=== PATIENT | female | born 1955 | race Caucasian/White ===

== ENCOUNTER 2020-05-17 09:20 | Emergency (ER) | payer BC ==
[2020-05-17] MEDS ORDERED: Nitroglycerin 0.4 MG Tab.SL ONE (09:38)
[2020-05-17] MEDS ORDERED: LORazepam 0.5 MG Tab PO ONE (10:12)
[2020-05-17] MEDS ORDERED: Nitroglycerin 0.4 MG Tab.SL SL ONE (10:12)
[2020-05-17 10:21] LABS: CHLORIDE,CL 101 mmol/L (98-107); SODIUM,NA 138 mmol/L (136-145)
[2020-05-17] MEDS ORDERED: Ondansetron 4 MG/2 ML SDV IVPUSH ONE (10:34)
[2020-05-17] MEDS ORDERED: Ticagrelor 90 MG Tab PO ONE (10:35)
[2020-05-17] MEDS ORDERED: Metoprolol Tartrate 25 MG Tab PO ONE (10:36)
[2020-05-17] MEDS: Sodium Chloride 0.9% 10 ML Syringe FLUSH PRN ×2 (10:37→10:57)
[2020-05-17] MEDS ORDERED: Nitroglycerin/D5W 25 MG/250 ML BOTTLE IV SCH (10:45)
[2020-05-17] MEDS ORDERED: Heparin Sodium/0.45% NaCl 500 ML IV SCH (10:45)
[2020-05-17] MEDS ORDERED: Heparin Sodium 5,000 Units/ML Vial IVPUSH ONE (10:48)
--- NOTE | 2020-05-17 10:48 | EDM.PDOC ---
ED HPI GENERAL MEDICAL PROBLEM - General Chief Complaint: Chest Pain Stated Complaint: chest pain Time Seen by Provider: 05/17/20 09:50 Source of Information: Reports: Patient History Limitations: Reports: No Limitations - History of Present Illness INITIAL COMMENTS - FREE TEXT/NARRATIVE: Patient comes to ER with complaint of right sided chest pain that started around 5am today. Radiates at times as an ache down right arm. Hand/fingers feel tingly. No accompanying SOB/sweating/nausea. Denies other symptoms. No history of CAD/previous [place] Has had intermittent similar episodes on and off over the last 3 months. Nothing specific triggers them. She thought they were due to stress/anxiety. No recent illnesses/injuries. 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, Other (see below) Other Treatments EMT DISPATCHER: pt took 325mg ASA - Related Data Allergies Allergy/AdvReac Type Severity Reaction Status Date / Time Sulfa (Sulfonamide Allergy Anaphylactic Verified 05/17/20 09:37 Antibiotics) Shock Past Medical History Cardiovascular History: Reports: High Cholesterol, Hypertension Respiratory History: Reports: Asthma, Other (See Below) (suspected sleep apnea/needs sleep study) Genitourinary History: Reports: Urinary Incontinence (stress incontinence) Musculoskeletal History: Reports: Osteoarthritis Endocrine/Metabolic History: Reports: Obesity/BMI 30+ Social & Family History - Tobacco Use Tobacco Use Status *Q: Never Tobacco User - Alcohol Use Alcohol Use History: No Alcohol Use Frequency: Rarely - Recreational Drug Use Recreational Drug Use: No Drug Use in Last 12 Months: No ED ROS GENERAL - Review of Systems Review Of Systems: Comprehensive ROS is negative, except as noted in HPI. ED EXAM, GENERAL - Physical Exam Exam: See Below Exam Limited By: No Limitations General Appearance: Alert, Anxious, Obese Eye Exam: Bilateral Eye: EOMI, PERRL Ears: Hearing Grossly Normal Nose: No: Nasal Deformity, Nasal Swelling, Nasal Drainage Throat/Mouth: Normal Lips, Normal Voice, No Airway Compromise Head: Atraumatic, Normocephalic Neck: Supple, Non-Tender, Full Range of Motion Respiratory/Chest: No Respiratory Distress, Lungs Clear, Normal Breath Sounds, No Accessory Muscle Use, Chest Non-Tender Cardiovascular: Regular Rate, Rhythm, No Edema, No Murmur GI/Abdominal: Normal Bowel Sounds, Soft, Non-Tender, No Distention (Female) Exam: Deferred Rectal (Female) Exam: Deferred Back Exam: No: CVA Tenderness (L), CVA Tenderness (R), Muscle Spasm, Paraspinal Tenderness, Vertebral Tenderness Extremities: Normal Inspection, Non-Tender, Normal Capillary Refill Neurological: Alert, Oriented, Normal Cognition Psychiatric: Normal Affect, Normal Mood Skin Exam: Warm, Dry, Intact, Normal Color #1 Interpretation EKG Date: 05/17/20 Time: 09:22 Rhythm: Other (1st degree AV block) Rate (Beats/Min): 101 [place]: Normal P-Wave: Present QRS: Normal ST-T: Other (no obvious ischemia noted) QT: Normal Comparison: NA - No Prior EKG #2 Interpretation EKG Date: 05/17/20 Time: 10:11 Rhythm: Other (sinus tach) Rate (Beats/Min): 121 [place]: LAD-Left [place] Deviation P-Wave: Present QRS: Normal ST-T: Elevated QT: Normal Comparison: Change From Previous EKG (appears to be developing ST elevation 2/3/AVF and in lateral leads) Course - Vital Signs Last Recorded V/S: Last Vital Signs Temp 36.7 C 05/17/20 09:20 Pulse 117 H 05/17/20 10:39 Resp 25 H 05/17/20 09:20 BP 148/98 H 05/17/20 10:39 Pulse Ox 98 05/17/20 09:20 - Orders/Labs/Meds Orders: Active Orders 24 hr Category Date Time Status EKG Documentation Completion [RC] ASDIRECTED Care 05/17/20 09:54 Ordered CXR [Chest 1V Frontal] [CR] Stat Exams 05/17/20 09:40 Ordered INR,PT,PROTHROMBIN TIME [COAG] Stat Lab 05/17/20 10:36 Ordered UA W/MICROSCOPIC [URIN] Stat Lab 05/17/20 09:53 Ordered Heparin Sodium/0.45% NaCl [Heparin 25,000 Units in 1/2 Med 05/17/20 10:45 Ordered NS 500 ML] 500 ml IV TITRATE Nitroglycerin 25 MG in D5W @ 10 MCG/MIN (250ml) Premix Med 05/17/20 10:45 Ordered Nitroglycerin/D5W [Nitroglycerin 25 MG/D5W 250 ML] 25 mg in 250 ml IV TITRATE Sodium Chloride 0.9% [Saline Flush] Med 05/17/20 09:52 Ordered 10 ml FLUSH ASDIRECTED PRN Saline Lock Insert [OM.PC] Stat Oth 05/17/20 09:53 Ordered Medication Orders Heparin Sodium/Sodium Chloride (Heparin 25,000 Units In 1/2 Ns 500 Ml) 500 mls @ 0 mls/hr IV TITRATE MIS; Protocol Nitroglycerin/Dextrose (Nitroglycerin 25 Mg/D5w 250 Ml) 25 mg in 250 mls @ 6 mls/hr IV TITRATE MIS; Protocol Sodium Chloride (Saline Flush) 10 ml FLUSH ASDIRECTED PRN PRN Reason: Keep Vein Open Last Admin: 05/17/20 10:37 Dose: 10 ml Documented by: SILVIA Labs: Laboratory Tests 05/17/20 05/17/20 05/17/20 Range/Units 09:45 09:45 09:45 WBC 8.4 (4.0-10.2) K/uL RBC 5.41 H (3.77-5.09) M/uL Hgb 16.5 H (11.7-15.5) g/dL Hct 49.4 H (34.0-46.0) % MCV 91.3 (84.0-98.0) fL MCH 30.5 (28.2-33.3) pg MCHC 33.4 (31.7-36.0) g/dL RDW 14.6 H (11.2-14.1) % Plt Count 327 (150-350) K/uL Neut % (Auto) 63.9 (45.0-80.0) % Lymph % (Auto) 25.1 (10.0-50.0) % Carbon % (Auto) 9.3 (2.0-14.0) % Eos % (Auto) 1.2 (0.0-5.0) % Baso % (Auto) 0.5 (0.0-2.0) % Neut # (Auto) 5.35 (1.40-7.00) K/uL Lymph # (Auto) 2.10 (0.50-3.50) K/uL Carbon # (Auto) 0.78 (0.00-1.00) K/uL Eos # (Auto) 0.10 (0.00-0.50) K/uL Baso # (Auto) 0.04 (0.00-0.20) K/uL D-Dimer, Quantitative < 100 (0-400) ng/mL Sodium 138 (136-145) mmol/L Potassium 3.6 (3.5-5.1) mmol/L Chloride 101 (98-107) mmol/L Carbon Dioxide 24.8 (21.0-32.0) mmol/L BUN 16 (7-18) mg/dL Creatinine 0.89 (0.51-1.17) mg/dL Est Cr Clr Drug Dosing TNP Estimated GFR (MDRD) > 60 mL/min Glucose 125 H (74-106) mg/dL Lactic Acid (0.4-2.0) mmol/L Calcium 9.9 (8.5-10.1) mg/dL Magnesium 2.1 (1.8-2.4) mg/dL Total Bilirubin 0.4 (0.2-1.0) mg/dL AST 22 (15-37) U/L ALT 39 (12-78) U/L Alkaline Phosphatase 69 (46-116) IU/L Troponin I 0.103 H* (0.000-0.056) ng/mL NT-Pro-B Natriuret Pep 2046 H (0-125) pg/mL Total Protein 8.0 (6.4-8.2) g/dL Albumin 4.3 (3.4-5.0) g/dL 05/17/20 Range/Units 09:45 WBC (4.0-10.2) K/uL RBC (3.77-5.09) M/uL Hgb (11.7-15.5) g/dL Hct (34.0-46.0) % MCV (84.0-98.0) fL MCH (28.2-33.3) pg MCHC (31.7-36.0) g/dL RDW (11.2-14.1) % Plt Count (150-350) K/uL Neut % (Auto) (45.0-80.0) % Lymph % (Auto) (10.0-50.0) % Carbon % (Auto) (2.0-14.0) % Eos % (Auto) (0.0-5.0) % Baso % (Auto) (0.0-2.0) % Neut # (Auto) (1.40-7.00) K/uL Lymph # (Auto) (0.50-3.50) K/uL Carbon # (Auto) (0.00-1.00) K/uL Eos # (Auto) (0.00-0.50) K/uL Baso # (Auto) (0.00-0.20) K/uL D-Dimer, Quantitative (0-400) ng/mL Sodium (136-145) mmol/L Potassium (3.5-5.1) mmol/L Chloride (98-107) mmol/L Carbon Dioxide (21.0-32.0) mmol/L BUN (7-18) mg/dL Creatinine (0.51-1.17) mg/dL Est Cr Clr Drug Dosing Estimated GFR (MDRD) mL/min Glucose (74-106) mg/dL Lactic Acid 1.6 (0.4-2.0) mmol/L Calcium (8.5-10.1) mg/dL Magnesium (1.8-2.4) mg/dL Total Bilirubin (0.2-1.0) mg/dL AST (15-37) U/L ALT (12-78) U/L Alkaline Phosphatase (46-116) IU/L Troponin I (0.000-0.056) ng/mL NT-Pro-B Natriuret Pep (0-125) pg/mL Total Protein (6.4-8.2) g/dL Albumin (3.4-5.0) g/dL Meds: Medications Generic Name Dose Route Start Last Admin Trade Name Freq PRN Reason Stop Dose Admin Heparin Sodium/Sodium Chloride 500 mls @ 0 mls/hr 05/17/20 10:45 Heparin 25,000 Units In 1/2 Ns 500 Ml IV TITRATE MIS Protocol 12 UNITS/KG/HR Nitroglycerin/Dextrose 25 mg in 250 mls @ 6 mls/hr 05/17/20 10:45 Nitroglycerin 25 Mg/D5w 250 Ml IV TITRATE MIS Protocol 10 MCG/MIN Sodium Chloride 10 ml 05/17/20 09:52 05/17/20 10:37 Saline Flush FLUSH 10 ml ASDIRECTED PRN Administration Keep Vein Open Discontinued Medications Generic Name Dose Route Start Last Admin Trade Name Freq PRN Reason Stop Dose Admin Lorazepam 0.5 mg 05/17/20 10:12 05/17/20 10:34 Ativan PO 05/17/20 10:13 0.5 mg ONETIME ONE Administration Metoprolol Tartrate 25 mg 05/17/20 10:36 05/17/20 10:39 Lopressor PO 05/17/20 10:37 25 mg ONETIME ONE Administration Nitroglycerin Confirm 05/17/20 09:38 05/17/20 09:38 Nitrostat Administered 05/17/20 09:39 0.4 mg Dose Administration 0.4 mg .ROUTE .STK-MED ONE Nitroglycerin 0.4 mg 05/17/20 10:12 05/17/20 10:13 Nitrostat SL 05/17/20 10:13 0.4 mg ONETIME ONE Administration Ondansetron HCl 4 mg 05/17/20 10:34 05/17/20 10:37 Zofran IVPUSH 05/17/20 10:35 4 mg ONETIME ONE Administration Ticagrelor 180 mg 05/17/20 10:35 05/17/20 10:37 Brilinta PO 05/17/20 10:36 180 mg ONETIME ONE Administration - Re-Assessments/Exams Free Text/Narrative Re-Assessment/Exam: 05/17/20 11:12 Chest pain protocol initiated. Patient had taken ASA prior to coming to ER and this was not given. Pain improved with NTG. Initial EKG did not show obvious ST depression/elevation. Chest xray unremarkable. Second nitro given. Further improvement of discomfort. Small amount pressure sensation remained. BP much improved. Telemetry pattern noted to change and another EKG ordered. This one indicated some ST elevation in multiple leads. [facility] contacted and these EKGs were faxed to their facility. At same time patient's labs started to return and troponin noted to be 0.103 Patient then discussed with from their ER staff and arrangements for transfer to their facility made. Brillinta/Heparin/Metoprolol ordered. Nitro drip initiated. EMS immediately available for transfer of patient via ground to [facility]. Departure - Departure Time of Disposition: 11:00 Disposition: DC/Tfer to Acute Hospital 02 Condition: Good Clinical Impression: Acute [place] Qualifiers: Myocardial infarction type: ST elevation myocardial infarction Involved coronary artery: unspecified coronary artery Qualified Code(s): I21.3 - ST elevation (STEMI) myocardial infarction of unspecified site - Discharge Information Referrals: Terri Juarez NP [Primary Care Provider] - Sepsis Event Note (ED) - Evaluation Sepsis Screening Result: No Definite Risk - Focused Exam Vital Signs: Vital Signs Temp Pulse Pulse Resp BP BP Pulse Ox 05/17/20 10:39 117 H 148/98 H 05/17/20 10:13 147/97 H 05/17/20 09:38 190/111 H 05/17/20 09:20 36.7 C 92 25 H 190/111 H 98 - My Orders Last 24 Hours: My Active Orders 05/17/20 09:40 CXR [Chest 1V Frontal] [CR] Stat 05/17/20 09:52 Sodium Chloride 0.9% [Saline Flush] 10 ml FLUSH ASDIRECTED PRN 05/17/20 09:53 UA W/MICROSCOPIC [URIN] Stat Saline Lock Insert [OM.PC] Stat 05/17/20 09:54 EKG Documentation Completion [RC] ASDIRECTED 05/17/20 10:36 INR,PT,PROTHROMBIN TIME [COAG] Stat 05/17/20 10:45 Heparin Sodium/0.45% NaCl [Heparin 25,000 Units in 1/2 NS 500 ML] 500 ml IV TITRATE Nitroglycerin 25 MG in D5W @ 10 MCG/MIN (250ml) Premix Nitroglycerin/D5W [Nitroglycerin 25 MG/D5W 250 ML] 25 mg in 250 ml IV TITRATE - Assessment/Plan Last 24 Hours: My Active Orders 05/17/20 09:40 CXR [Chest 1V Frontal] [CR] Stat 05/17/20 09:52 Sodium Chloride 0.9% [Saline Flush] 10 ml FLUSH ASDIRECTED PRN 05/17/20 09:53 UA W/MICROSCOPIC [URIN] Stat Saline Lock Insert [OM.PC] Stat 05/17/20 09:54 EKG Documentation Completion [RC] ASDIRECTED 05/17/20 10:36 INR,PT,PROTHROMBIN TIME [COAG] Stat 05/17/20 10:45 Heparin Sodium/0.45% NaCl [Heparin 25,000 Units in 1/2 NS 500 ML] 500 ml IV TITRATE Nitroglycerin 25 MG in D5W @ 10 MCG/MIN (250ml) Premix Nitroglycerin/D5W [Nitroglycerin 25 MG/D5W 250 ML] 25 mg in 250 ml IV TITRATE
== END 2020-05-17 11:20 ==
LOC: LL.ED 09:20
DX: I21.3 ST elevation (STEMI) myocardial infarction of unspecified site (principal); E78.00 Pure hypercholesterolemia, unspecified; I10 Essential (primary) hypertension; J45.909 Unspecified asthma, uncomplicated; E66.9 Obesity, unspecified; Z88.2 Allergy status to sulfonamides
CPT/HCPCS: 36415; 71045; 80053; 83605; 83735; 83880; 84484; 85025; 85379; 85610; 93005; 96365; 96368; 96375; 99285-25; A9270-GY; J1644; J2405; J3490

== ENCOUNTER 2020-08-30 01:05 | Emergency (ER) | payer BC ==
[2020-08-30] MEDS: Phenylephrine 0.5% Nasal Spray 15 ML Bot NASBOTH ONE (01:21)
[2020-08-30] MEDS: cloNIDine 0.1 MG Tab PO ONE (01:22)
--- NOTE | 2020-08-30 01:31 | EDM.PDOC ---
ED HPI GENERAL MEDICAL PROBLEM - General Chief Complaint: General Stated Complaint: Nose bleed Time Seen by Provider: 08/30/20 01:10 Source of Information: Reports: Patient History Limitations: Reports: No Limitations - History of Present Illness INITIAL COMMENTS - FREE TEXT/NARRATIVE: Nose bleed for about 3 hours from left nares Is on Brelinta Onset: Today, Sudden Duration: Hour(s): Location: Reports: Face - Related Data Allergies Allergy/AdvReac Type Severity Reaction Status Date / Time Sulfa (Sulfonamide Allergy Anaphylactic Verified 05/17/20 09:37 Antibiotics) Shock Home Meds: Home Meds Diltiazem [Dilacor XR] 1 tab PO DAILY 05/17/20 [History] Ezetimibe [Zetia] 1 tab PO BEDTIME 05/17/20 [History] Imipramine HCl [Imipramine] 1 tab PO BEDTIME 05/17/20 [History] Losartan [Cozaar] 1 tab PO DAILY 05/17/20 [History] Potassium Chloride [Klor-Con M20] 1 tab PO DAILY 05/17/20 [History] Zafirlukast [Accolate] 1 tab PO BEDTIME 05/17/20 [History] cloNIDine [Catapres] 1 tab PO BID 05/17/20 [History] hydroCHLOROthiazide [Hydrochlorothiazide] 1 tab PO DAILY 05/17/20 [History] Past Medical History Cardiovascular History: Reports: High Cholesterol, Hypertension Respiratory History: Reports: Asthma, Other (See Below) (suspected sleep apnea/needs sleep study) Genitourinary History: Reports: Urinary Incontinence (stress incontinence) Musculoskeletal History: Reports: Osteoarthritis Endocrine/Metabolic History: Reports: Obesity/BMI 30+ ED ROS GENERAL - Review of Systems Review Of Systems: See Below HEENT: Reports: Nosebleed ED EXAM, GENERAL - Physical Exam Exam: See Below Exam Limited By: No Limitations General Appearance: Alert, WD/WN Nose: Other (Mild bleeding from left nares) Throat/Mouth: Normal Oropharynx Course - Vital Signs Last Recorded V/S: Last Vital Signs Temp 97.3 F 08/30/20 01:23 Pulse 94 08/30/20 01:23 Resp 14 08/30/20 01:23 BP 157/125 H 08/30/20 01:23 Pulse Ox 98 08/30/20 01:23 - Orders/Labs/Meds Meds: Medications Discontinued Medications Generic Name Dose Route Start Last Admin Trade Name [place] PRN Reason Stop Dose Admin Clonidine HCl 0.1 mg 08/30/20 01:13 08/30/20 01:22 Catapres PO 08/30/20 01:14 0.1 mg ONETIME ONE Administration Phenylephrine HCl 15 ml 08/30/20 01:17 08/30/20 01:21 Andres-Synephrine 0.5% Regular Nasal Samson NASBOTH 08/30/20 01:18 15 ml ONETIME ONE Administration - Re-Assessments/Exams Free Text/Narrative Re-Assessment/Exam: 08/30/20 01:29 Andres-synephrine sprayed up both nares 7.5 cm balloon placed in left nares without problem Bleeding resolved Departure - Departure Time of Disposition: 01:30 Disposition: Home, Self-Care 01 Clinical Impression: Bleeding nose - Discharge Information *PRESCRIPTION DRUG MONITORING PROGRAM REVIEWED*: Not Applicable *COPY OF PRESCRIPTION DRUG MONITORING REPORT IN PATIENT STEFFEN: Not Applicable Referrals: Terri Juarez NP [Primary Care Provider] - Additional Instructions: To clinic in 24 to 48 hours for removal Sepsis Event Note (ED) - Evaluation Sepsis Screening Result: No Definite Risk - Focused Exam Vital Signs: Vital Signs Temp Pulse Resp BP BP Pulse Ox 08/30/20 01:23 97.3 F 94 14 157/125 H 98 08/30/20 01:22 157/125 H
[2020-08-30] MEDS: Sodium Chloride 0.9% 1,000 ML IV ONE (02:04)
[2020-08-30 02:07] VITALS: BP 148/86; PULSE 65
== END 2020-08-30 02:25 | disposition home or self-care (01) ==
LOC: LL.ED 01:05
DX: R04.0 Epistaxis (principal); J45.909 Unspecified asthma, uncomplicated; I10 Essential (primary) hypertension; E66.9 Obesity, unspecified; Z68.31 Body mass index [BMI] 31.0-31.9, adult; Z88.2 Allergy status to sulfonamides; Z79.899 Other long term (current) drug therapy
CPT/HCPCS: 30903; 99283-25; A9270-GY; J7030

== ENCOUNTER 2020-08-31 11:43 | Observation (INO) | payer BC ==
--- NOTE | 2020-08-31 11:45 | EDM.PDOC ---
ED HPI GENERAL MEDICAL PROBLEM - General Chief Complaint: General Stated Complaint: hypotension, dizziness Time Seen by Provider: 08/31/20 11:45 Source of Information: Reports: Patient, Family (), Old Records ([facility] chart/EMR), Other (Telephone consultation with YON Bar at the [facility]) History Limitations: Reports: No Limitations - History of Present Illness INITIAL COMMENTS - FREE TEXT/NARRATIVE: Patient was brought to the emergency room via private automobile by her for evaluation of significant hypotension with a blood pressure of only 70/58 at [facility] with no treatment or medications in that facility with exception of INR fingerstick evaluation of 1.0. Previous telephone consultation with YON Bar at the [facility] updating me concerning patient's symptoms and transfer to our emergency room for further evaluation. The patient was evaluated in this facility on 08/29 for left-sided epistaxis with apparent moderate blood loss and significant vasovagal episode after Irvin catheter was placed in the left naris at that time. Note that the patient was also given clonidine during that evaluation with patient previously on clonidine without problems prior to her previous AK in April 2020 as below. The patient woke up at about 3:30 AM this morning with nonspecific dizziness and weakness, however no orthostasis, fall, injury, etc.. The patient denies any chest pain/pressure, heart flutter, orthostasis, orthopnea, diaphoresis, paresthesias, recent decreased exercise tolerance, or any other anginal-type symptoms. No recent history of abdominal pain, heartburn, nausea, diarrhea, melena, gross hematochezia, or any food intolerance, including fatty foods, etc.. She denies any gross hematuria, colic, or other UTI symptoms. The patient also denies any recent fever, cough, wheezing, dyspnea, etc.. No history of recent headaches, visual changes, diplopia, change in mental status, or other change in neurological status. Note that the patient's blood pressure on 08/29 was initially elevated at 157/125 with patient denying any medication noncompliance or restarting of clonidine therapy since that visit. The patient did take her morning medications today. She denies any current pain or discomfort. Onset: Today, Gradual Onset Date: 08/31/20 Onset Time: 03:30 Duration: Other (No pain) Quality: Reports: Same as Previous Episode Severity: Severe (Hypertension prior to arrival as above) Improves with: Reports: None Worsens with: Reports: None Context: Reports: Other (As above). Denies: Sick Contact, Trauma Associated Symptoms: Reports: Weakness (Nonspecific generalized improved at time of arrival). Denies: Confusion, Chest Pain, Diaphoresis, Fever/Chills, Headaches, Loss of Appetite, Malaise, Nausea/Vomiting, Rash, Seizure, Shortness of Breath, Syncope Treatments CALENDERER: Reports: Other (see below) (None) - Related Data Allergies Allergy/AdvReac Type Severity Reaction Status Date / Time Sulfa (Sulfonamide Allergy Anaphylactic Verified 08/31/20 11:44 Antibiotics) Shock Home Meds: Home Meds Imipramine HCl [Imipramine] 1 tab PO BEDTIME 05/17/20 [History] Potassium Chloride [Klor-Con M20] 1 tab PO DAILY 05/17/20 [History] Aspirin 1 tab PO DAILY 08/31/20 [History] Biotin/Keratin [Biotin Plus Keratin Tablet] 1 tab PO DAILY 08/31/20 [History] Calcium Carbonate [Calcium] 1 tab PO DAILY 08/31/20 [History] Cholecalciferol (Vitamin D3) [Vitamin D3] 5,000 unit PO DAILY 08/31/20 [History] Fish Oil/DHA/EPA [Fish Oil 1,200 MG] 1 cap PO BEDTIME 08/31/20 [History] Flaxseed Oil [Rodeo-3 Flaxseed Oil] 1 cap PO DAILY 08/31/20 [History] Fluticasone Propionate [Flonase] 2 spray NASBOTH DAILY 08/31/20 [History] Fluticasone/Salmeterol [Advair 250-50] 1 puff INH BID 08/31/20 [History] Furosemide [Lasix] 1 tab PO DAILY 08/31/20 [History] Garlic 1 cap PO DAILY 08/31/20 [History] Magnesium Oxide 1 tab PO BEDTIME 08/31/20 [History] Metoprolol Succinate 1 tab PO DAILY 08/31/20 [History] Multivitamin with Minerals [One Daily Plus Minerals] 1 tab PO DAILY 08/31/20 [History] Rosuvastatin [Crestor] 0.5 tab PO Q2D 08/31/20 [History] Sacubitril/Valsartan [Entresto 49 mg-51 mg Tablet] 1 tab PO BID 08/31/20 [History] Ticagrelor [Brilinta] 1 tab PO BID 08/31/20 [History] Ubidecarenone [Co Q-10] 1 cap PO DAILY 08/31/20 [History] Zafirlukast [Accolate] 1 tab PO BEDTIME 08/31/20 [History] lisinopriL [Lisinopril] 1 tab PO DAILY 08/31/20 [History] Past Medical History HEENT History: Reports: Allergic Rhinitis, Cataract, Impaired Vision, Other (See Below). Denies: Glaucoma, Hard of Hearing, Macular Degeneration, Otitis Media, Retinal Detachment Other HEENT History: History of right TM perforation requiring surgery as below. No history of recurrent otitis media requiring PE tubes. Patient does wear glasses. Beginning cataracts with no surgery to this point. Cardiovascular History: Reports: Arrhythmia, CAD, Cardiomyopathy, Heart Failure, High Cholesterol, Hypertension, AK, PTCA, Stents, Other (See Below). Denies: Afib, Aneurysm, Blood Clots/VTE/DVT, Heart Murmur, PVD, Syncope Other Cardiovascular History: Inferior wall STEMI on 05/17/2020 with multivessel 80-90% stenosis with PTCA/stent x3 as below. Left ventricular enlargement by echocardiogram. Severe ischemic cardiomyopathy with ejection fraction of only 20-25% on 05/19/2020, although improved on 08/20/2020 as below. Previously known grade 1 diastolic dysfunction. Bradycardia secondary to Cardizem. Previous sinus tachycardia of unknown etiology. Dyslipidemia. Respiratory History: Reports: Asthma, Bronchitis, Recurrent, COPD, Intubation, Previous, Other (See Below). Denies: Intubation, Difficult, PE, Pneumonia, Recurrent, Pneumothorax, Sleep Apnea, TB Other Respiratory History: Possible beginning sleep apnea with no work-up to this point. Gastrointestinal History: Reports: GERD, PUD. Denies: Celiac Disease, Cholelithiasis, Chronic Constipation, Chronic Diarrhea, Colon Polyp, Fecal Incontinence, Gastritis, GI Bleed, Hepatitis, Inflammatory Bowel Disease, Irritable Bowel Syndrome, Jaundice, Pancreatitis Genitourinary History: Reports: Urinary Incontinence. 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 Menopause in her 50s with brief episode of postmenopausal bleeding in January 2018 with spontaneous resolution with only pelvic ultrasound work-up to this point. Musculoskeletal History: Reports: Arthritis, Osteoarthritis, Other (See Below). Denies: Amputation, Back Pain, Chronic, Fracture, Gout, Neck Pain, Chronic, Osteoporosis, RA, SLE Other Musculoskeletal History: Clark's cyst of the left knee. Neurological History: Reports: None. Denies: Alzheimers Disease, Cerebral Aneurysms, Concussion, CVA, Headaches, Chronic, Head Trauma, Migraines, MS, Neuropathy, Peripheral, Parkinson's, Seizure, TIA, Vertigo Psychiatric History: Reports: None. Denies: Abuse, Victim of, ADD, ADHD, Addiction, Anxiety, Dementia, Depression, Psych Hospitalization(s), PTSD, Suicide Attempt, Suicidal Ideation Endocrine/Metabolic History: Reports: None, Obesity/BMI 30+. Denies: Diabetes, Gestational, Diabetes, Type I, Diabetes, Type II, Diabetes Mellitus, Type 3c, Hypokalemia, Hypomagnesemia, Hypothyroidism, IDDM Hematologic History: Reports: Other (See Below). Denies: Anemia, B12 Deficiency, Blood Transfusion(s), Iron Deficiency Other Hematologic History: Polycythemia secondary to asthma/COPD. Immunologic History: Reports: None. Denies: AIDS, HIV, SLE Oncologic (Cancer) History: Reports: None. Denies: Basal Cell Carcinoma, Cervix, Colon, Hodgkin's Lymphoma, Leukemia, Lymphoma, Malignant Melanoma, Non- Hodgkin's Lymphoma, Ovarian, Squamous Cell Carcinoma, Uterine Dermatologic History: Reports: None. Denies: Eczema, Psoriasis - Infectious Disease History Infectious Disease History: Reports: Chicken Pox, Measles. Denies: C-Difficile, Meningitis, Mononucleosis, MRSA, Mumps, Novel Coronavirus, Pertussis (Whooping Cough), Rheumatic Fever, Rubella, Scarlet Fever, Shingles, VRE - Past Surgical History Head Surgeries/Procedures: Reports: None HEENT Surgical History: Reports: Adenoidectomy, Oral Surgery, Tonsillectomy, Other (See Below). Denies: Cataract Surgery, Eye Surgery, Laser Surgery, LASIK, Myringotomy w Tube(s), Naso-Sinus Surgery Other HEENT Surgeries/Procedures: Tonsillectomy and adenoidectomy as a child. Right-sided tympanoplasty at about age 6. [place] teeth extraction x1 with concomitant TMJ repair on the right side in the with subsequent prosthesis removal later in the . Cardiovascular Surgical History: Reports: Coronary Artery Stent, Percutaneous Transluminal Angioplasty, Other (See Below). Denies: Varicose Other Cardiovascular Surgeries/Procedures: PTCA/stent x3 on 05/18/2020 including the LAD, left circumflex and right coronary arteries. Respiratory Surgical History: Reports: None. Denies: Thoracentesis GI Surgical History: Reports: None. Denies: Appendectomy, Cholecystectomy, Colonoscopy, EGD, Hernia, Abdominal, Hernia, Inguinal, Hernia Repair/Other Female Surgical History: Reports: Breast Biopsy, Tubal Ligation, Other (See Below). Denies: Section, D&C, Hysterectomy, Salpingo-Oophorectomy Other Female Surgeries/Procedures: Bilateral tubal ligation in about 1981. Endocrine Surgical History: Reports: None. Denies: Thyroid Biopsy Neurological Surgical History: Denies: C-Spine, Discectomy, Laminectomy, Lumbar Spine, Sacral Spine, Spinal Fusion, Thoracic Spine, Vertebroplasty Musculoskeletal Surgical History: Reports: None. Denies: Amputation, Arthroscopic Procedure, Carpal Tunnel, Ganglion Cyst, Joint Replacement, ORIF, Shoulder Surgery Oncologic Surgical History: Reports: None Dermatological Surgical History: Reports: None - Past Imaging History Past Imaging History: Reports: Angiography (Heart catheterization on 05/17/2020 with subsequent PTCA/stent on 05/18/2020 as above.), Cardiac Echo (Last echocardiogram on 08/20/2020 with ejection fraction of 40-45% with previous echocardiogram on 05/19/2020 and 05/17/2020 indicating severe ischemic cardiomyopathy with ejection fraction of only 20-25%. Otherwise findings as above. Previous echocardiogram on 01/23/2011 showed an ejection fraction of 69%.), CAT Scan (CT of the sinuses in December 06, 2009.), Mammogram (Last on 09/03/2015.), Stress Testing (05/29/2002. Negative Cardiolite stress test other than arrhythmia on), Ultrasound (Pelvic ultrasound on 02/12/2018.), Venous Doppler (Venous Doppler studies of the left leg on 06/11/2010 and 05/05/2010.) Social & Family History - Family History HEENT: Reports: None. Denies: Glaucoma, Macular Degeneration, Retinal Detachment Cardiac: Reports: Afib, Blood Clots/VTE/DVT, CAD, Heart Murmur, Hypertension, AK, Pacemaker, Other (See Below). Denies: Aneurysm, Arrhythmia, High Cholesterol, PVD/COD, Syncope Other Cardiac Family History: Father with history of pacemaker and DVT and unknown type of valvular surgery x2. Fatal AK at age 71 in her procedures done like bypasses or stents or any father. Sister with atrial fibrillation and hyperlipidemia. Maternal grandfather with fatal AK in his 40s to 50s. Paternal uncle with valvular surgery at age 56. Respiratory: Reports: Sleep Apnea, Other (See Below). Denies: Asthma, COPD, PE, Pneumothorax Other Respiratory Family Hisory: Sister with sleep apnea. GI: Reports: None. Denies: Celiac Disease, Cholelithiasis, Colon Polyps, GERD, GI bleed, Inflammatory Bowel Disease, Irritable Bowel Syndrome, PUD : Reports: None. Denies: Renal Calculus, Renal Disease/Insufficiency OBGYN: Reports: None. Denies: Dysfunctional uterine bleeding, Endometriosis, Fibroids, Recurrent Spontaneous Musculoskeletal: Reports: None. Denies: Arthritis, Gout, Osteoarthritis, RA, SLE Neurological: Reports: Alzheimers Disease, Dementia, Migraines, Other (See Below). Denies: Cerebral Aneurysms, CVA, MS, Parkinson's, Seizure, TIA Other Neurological Family History: Mother with organic brain syndrome. Migraine headaches and daughters x2. Psychiatric: Reports: Anxiety, Depression, Other (See Below). Denies: Abuse, Victim of, ADD, ADHD, Psych Hospitalization(s), Psychosis, PTSD, Suicide Attempt Other Psychiatric Family History: Anxiety depression disorder in daughter and maternal grandmother. Endocrine/Metabolic: Reports: None. Denies: Diabetes, Gestational, Diabetes, Type I, Diabetes, type II, Diabetes Mellitus, Type 3c, Hypothyroidism, IDDM Hematologic: Reports: None. Denies: Anemia, SLE Immunologic: Reports: None. Denies: AIDS, HIV, SLE Dermatologic: Denies: Eczema, Psoriasis Oncologic: Reports: Ovarian, Other (See Below). Denies: Breast, Cervix, Colon, Hodgkin's Lymphoma, Leukemia, Lung, Non-Hodgkin's Lymphoma, Prostate, Renal, Skin, Uterine Other Oncologic Family History: Sister with ovarian cancer in her 50s. - Tobacco Use Tobacco Use Status *Q: Never Tobacco User Tobacco Use Within Last Twelve Months: No Used Tobacco, but Quit: No Smoking Cessation Information Provided To Patient: No Second Hand Smoke Exposure: No Second Hand Smoke Education Provided: No - Caffeine Use Caffeine Use: Reports: None. Denies: Coffee, Energy Drinks, Soda, Tea - Alcohol Use Alcohol Use History: Yes Days Per Week of Alcohol Use: 0 Number of Drinks Per Day: 1 Number of Drinks Per Day Comment: Usually wine or mixed drinks only once per year. No previous DWIs, problems with alcohol abuse, etc. 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 ED EXAM, GENERAL - Physical Exam Exam: See Below Exam Limited By: No Limitations General Appearance: Alert, WD/WN, No Apparent Distress Eye Exam: Bilateral Eye: EOMI, Normal Inspection (No nystagmus or vertigo. Patient is wearing glasses.), PERRL Ears: Normal External Exam, Normal Canal, Hearing Grossly Normal, Normal TMs Nose: Normal Inspection, Normal Mucosa, No Blood Throat/Mouth: Normal Inspection, Normal Lips, Normal Teeth, Normal Gums, Normal Oropharynx, Normal Voice, No Airway Compromise. No: Dysphagia, Perioral Cyanosis Head: Atraumatic, Normocephalic. No: Facial Swelling, Facial Tenderness, Sinus Tenderness Neck: Normal Inspection, Supple, Non-Tender, Full Range of Motion. No: Carotid Bruit, Lymphadenopathy (L), Lymphadenopathy (R), Thyromegaly Respiratory/Chest: No Respiratory Distress, Lungs Clear, Normal Breath Sounds, No Accessory Muscle Use, Chest Non-Tender. No: Pleural Rub, Retractions Cardiovascular: Normal Peripheral Pulses, No Edema, No Gallop, No JVD, No Murmur, No Rub, Tachycardia. No: Gallop/S3, Gallop/S4, Extra Beats (None at time of exam), Friction Rub Peripheral Pulses: 2+: Radial (L), Radial (R), Dorsalis Pedis (L), Dorsalis Pedis (R) GI/Abdominal: Normal Bowel Sounds, Soft, Non-Tender, No Organomegaly, No Distention, No Abnormal Bruit, No Mass, Pelvis Stable, Other (Obese). No: Guarding (Female) Exam: Deferred Rectal (Female) Exam: Deferred Back Exam: Normal Inspection, Full Range of Motion. No: CVA Tenderness (L), CVA Tenderness (R), Other Extremities: Normal Inspection, Normal Range of Motion, Non-Tender, No Pedal Edema, Normal Capillary Refill. No: Arianna's Sign Neurological: Alert, Oriented, CN II-XII Intact, Normal Cognition, Normal Gait, Normal Reflexes (Negative Babinski's), No Motor/Sensory Deficits Psychiatric: Normal Affect, Normal Mood Skin Exam: Warm, Dry, Intact, Normal Color, No Rash, Ecchymosis (Occasional arms bilaterally). No: Diaphoretic, Petechiae, Wound/Incision Lymphatic: No Adenopathy #1 Interpretation EKG Date: 08/31/20 Time: 11:50 Rhythm: Other (Sinus tachycardia) Rate (Beats/Min): 105 Basom: Normal (Extended left cardiac access) P-Wave: Enlarged (Mild diffuse biphasic P waves with extreme poor R wave progression in the anterior leads) QRS: LBBB (0.10 seconds representing a new borderline incomplete left bundle branch block with T wave inversions in leads V3 through V6) ST-T: Other (As above) QT: Normal GA/PQ Interval: 0.21 seconds representing a stable first-degree AV block Comparison: Change From Previous EKG (Only written report of [facility] E[facility] from [facility] is available from 05/19/2020 with possibility of progressive lateral wall cardiac ischemia and new incomplete left bundle branch block?) EKG Interpretation Comments: 1. Lateral wall cardiac ischemia 2. First-degree AV block 3. Left atrial enlargement Course - Vital Signs Last Recorded V/S: Last Vital Signs Temp 36.7 C 08/31/20 11:46 Pulse 87 08/31/20 11:46 Resp 20 08/31/20 11:46 BP 127/86 08/31/20 11:46 Pulse Ox 97 08/31/20 11:46 Vital Signs - 24 hr 08/31/20 08/31/20 08/31/20 11:46 12:00 12:15 Temperature [ 36.7 C Oral] Pulse, 87 105 H 105 H Peripheral [ Pulse Oximetry] Respiratory 20 20 22 H Rate Blood Pressure 127/86 109/77 120/105 H [Right Upper Arm] O2 Sat by Pulse 97 94 L 96 Oximetry 08/31/20 08/31/20 08/31/20 12:30 12:45 13:00 Temperature [ Oral] Pulse, 105 H 99 98 Peripheral [ Pulse Oximetry] Respiratory 24 H 23 H 20 Rate Blood Pressure 112/88 127/87 147/97 H [Right Upper Arm] O2 Sat by Pulse 94 L 94 L 96 Oximetry 08/31/20 13:18 Temperature [ Oral] Pulse, 91 Peripheral [ Pulse Oximetry] Respiratory 20 Rate Blood Pressure 142/91 H [Right Upper Arm] O2 Sat by Pulse 96 Oximetry - Orders/Labs/Meds Orders: Active Orders 24 hr Category Date Time Status Cardiac Monitoring [RC] . DIRECTED Care 08/31/20 11:46 Active EKG Documentation Completion [RC] ASDIRECTED Care 08/31/20 11:46 Active Oxygen Therapy, ED [RC] PRN Care 08/31/20 11:46 Active Peripheral IV Care [RC] . DIRECTED Care 08/31/20 11:46 Active Pulse Oximetry [RC] CONTINUOUS Care 08/31/20 11:46 Active Up With Assistance [RC] PFP Care 08/31/20 11:46 Active Vital Signs [RC] PFP Care 08/31/20 11:46 Active Nothing per Oral Now Diet [DIET] Diet 08/31/20 Breakfast Active Chest 1V Frontal [CR] Stat Exams 08/31/20 11:46 Taken Lactated Ringers [Ringers, Lactated] 1,000 ml Med 08/31/20 12:19 Active IV .BOLUS Sodium Chloride 0.9% [Saline Flush] Med 08/31/20 11:46 Active 10 ml FLUSH ASDIRECTED PRN Obtain Past Medical Record [OM.PC] Urgent Oth 08/31/20 11:46 Active Peripheral IV Insertion Adult [OM.PC] Stat Oth 08/31/20 11:46 Ordered Resuscitation Status Stat Resus Stat 08/31/20 11:46 Ordered EKG 12 Lead [EK] Stat Ther 08/31/20 11:46 Ordered Medication Orders Lactated Ringer's (Ringers, Lactated) 1,000 mls @ 999 mls/hr IV .BOLUS ONE Stop: 08/31/20 13:19 Last Admin: 08/31/20 12:29 Dose: 999 mls/hr Documented by: FRIDA Sodium Chloride (Saline Flush) 10 ml FLUSH ASDIRECTED PRN PRN Reason: Keep Vein Open Last Admin: 08/31/20 11:53 Dose: 10 ml Documented by: SILVIA Labs: Laboratory Tests 08/31/20 08/31/20 08/31/20 Range/Units 11:55 11:55 11:55 WBC 16.7 H (4.0-10.2) K/uL RBC 5.33 H (3.77-5.09) M/uL Hgb 15.8 H (11.7-15.5) g/dL Hct 48.2 H (34.0-46.0) % MCV 90.4 (84.0-98.0) fL MCH 29.6 (28.2-33.3) pg MCHC 32.8 (31.7-36.0) g/dL RDW 14.9 H (11.2-14.1) % Plt Count 317 (150-350) K/uL Neut % (Auto) 82.0 H (45.0-80.0) % Lymph % (Auto) 9.5 L (10.0-50.0) % [place] % (Auto) 8.3 (2.0-14.0) % Eos % (Auto) 0.1 (0.0-5.0) % Baso % (Auto) 0.1 (0.0-2.0) % Neut # (Auto) 13.66 H (1.40-7.00) K/uL Lymph # (Auto) 1.59 (0.50-3.50) K/uL [place] # (Auto) 1.39 H (0.00-1.00) K/uL Eos # (Auto) 0.01 (0.00-0.50) K/uL Baso # (Auto) 0.02 (0.00-0.20) K/uL PT 9.6 (9.5-12.0) SEC INR 1.0 APTT 25.3 (24.5-32.8) SEC D-Dimer, Quantitative 246 (0-400) ng/mL Sodium (136-145) mmol/L Potassium (3.5-5.1) mmol/L Chloride (98-107) mmol/L Carbon Dioxide (21.0-32.0) mmol/L BUN (7-18) mg/dL Creatinine (0.51-1.17) mg/dL Est Cr Clr Drug Dosing Estimated GFR (MDRD) mL/min Glucose (74-106) mg/dL Lactic Acid (0.4-2.0) mmol/L Uric Acid (2.6-7.2) mg/dL Calcium (8.5-10.1) mg/dL Magnesium (1.8-2.4) mg/dL Total Bilirubin (0.2-1.0) mg/dL AST (15-37) U/L ALT (12-78) U/L Alkaline Phosphatase (46-116) IU/L Creatine Kinase (26-308) U/L Creatine Kinase Index (0.0-2.5) % CK-MB (CK-2) (0.00-3.60) ng/mL Troponin I (0.000-0.056) ng/mL NT-Pro-B Natriuret Pep (0-125) pg/mL Total Protein (6.4-8.2) g/dL Albumin (3.4-5.0) g/dL TSH, Ultra Sensitive (0.358-3.740) mIU/mL 08/31/20 08/31/20 Range/Units 11:55 11:55 WBC (4.0-10.2) K/uL RBC (3.77-5.09) M/uL Hgb (11.7-15.5) g/dL Hct (34.0-46.0) % MCV (84.0-98.0) fL MCH (28.2-33.3) pg MCHC (31.7-36.0) g/dL RDW (11.2-14.1) % Plt Count (150-350) K/uL Neut % (Auto) (45.0-80.0) % Lymph % (Auto) (10.0-50.0) % [place] % (Auto) (2.0-14.0) % Eos % (Auto) (0.0-5.0) % Baso % (Auto) (0.0-2.0) % Neut # (Auto) (1.40-7.00) K/uL Lymph # (Auto) (0.50-3.50) K/uL [place] # (Auto) (0.00-1.00) K/uL Eos # (Auto) (0.00-0.50) K/uL Baso # (Auto) (0.00-0.20) K/uL PT (9.5-12.0) SEC INR APTT (24.5-32.8) SEC D-Dimer, Quantitative (0-400) ng/mL Sodium 138 (136-145) mmol/L Potassium 3.9 (3.5-5.1) mmol/L Chloride 102 (98-107) mmol/L Carbon Dioxide 24.1 (21.0-32.0) mmol/L BUN 16 (7-18) mg/dL Creatinine 1.03 (0.51-1.17) mg/dL Est Cr Clr Drug Dosing TNP Estimated GFR (MDRD) 54 mL/min Glucose 124 H (74-106) mg/dL Lactic Acid 2.3 H (0.4-2.0) mmol/L Uric Acid 4.6 (2.6-7.2) mg/dL Calcium 9.7 (8.5-10.1) mg/dL Magnesium 2.1 (1.8-2.4) mg/dL Total Bilirubin 0.8 (0.2-1.0) mg/dL AST 15 (15-37) U/L ALT 24 (12-78) U/L Alkaline Phosphatase 76 (46-116) IU/L Creatine Kinase 51 (26-308) U/L Creatine Kinase Index 2.0 (0.0-2.5) % CK-MB (CK-2) 1.00 (0.00-3.60) ng/mL Troponin I 0.012 (0.000-0.056) ng/mL NT-Pro-B Natriuret Pep 4484 H (0-125) pg/mL Total Protein 7.7 (6.4-8.2) g/dL Albumin 3.8 (3.4-5.0) g/dL TSH, Ultra Sensitive 1.908 (0.358-3.740) mIU/mL Meds: Medications Generic Name Dose Route Start Last Admin Trade Name Freq PRN Reason Stop Dose Admin Lactated Ringer's 1,000 mls @ 999 mls/hr 08/31/20 12:19 08/31/20 12:29 Ringers, Lactated IV 08/31/20 13:19 999 mls/hr .BOLUS ONE Administration Sodium Chloride 10 ml 08/31/20 11:46 08/31/20 11:53 Saline Flush FLUSH 10 ml ASDIRECTED PRN Administration Keep Vein Open Discontinued Medications Generic Name Dose Route Start Last Admin Trade Name Freq PRN Reason Stop Dose Admin Famotidine 40 mg 08/31/20 11:46 08/31/20 11:53 Pepcid IVPUSH 08/31/20 11:47 40 mg ONETIME ONE Administration - Radiology Interpretation Free Text/Narrative:: 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 Chest x-ray, portable, shows moderate pulmonary obstructive disease with no cardiomegaly, CHF, pulmonary infiltrates, pneumothorax, etc. Departure - Departure Time of Disposition: 13:30 Disposition: DC/Tfer W/I Hosp To Swing 61 Clinical Impression: First degree AV block, Incomplete left bundle branch block, PVCs (premature ventricular contractions), Dyslipidemia, Lactic acid blood increased Coronary artery disease Qualifiers: Coronary Disease-Associated Artery/Lesion type: eagle artery [place] vs. transplanted heart: eagle heart Associated angina: without angina Qualified Code(s): I25.10 - Atherosclerotic heart disease of eagle coronary artery without angina pectoris COPD (chronic obstructive pulmonary disease) Qualifiers: COPD type: emphysema Emphysema type: panlobular Qualified Code(s): J43.1 - Panlobular emphysema Hypertension Qualifiers: Hypertension type: essential hypertension Qualified Code(s): I10 - Essential (primary) hypertension Leukocytosis Qualifiers: Leukocytosis type: bandemia Qualified Code(s): D72.825 - [place] CHF (congestive heart failure) Qualifiers: Heart failure type: combined systolic and diastolic Heart failure chronicity: acute on chronic Qualified Code(s): I50.43 - Acute on chronic combined systolic (congestive) and diastolic (congestive) heart failure - Discharge Information *PRESCRIPTION DRUG MONITORING PROGRAM REVIEWED*: Not Applicable *COPY OF PRESCRIPTION DRUG MONITORING REPORT IN PATIENT STEFFEN: Not Applicable Referrals: Terri Juarez, [employer] MACHINE [Primary Care Provider] - Forms: ED Department Discharge Care Plan Goals: See plan Sepsis Event Note (ED) - Focused Exam Vital Signs: Vital Signs Temp Pulse Resp BP Pulse Ox 08/31/20 11:46 36.7 C 87 20 127/86 97 - Problem List & Annotations (1) Hypertension SNOMED Code(s): 97038143 Code(s): I10 - ESSENTIAL (PRIMARY) HYPERTENSION Status: Chronic Priority: High Current Visit: Yes Annotation/Comment:: Known history of hypertension, which has been under relatively moderate control since her episode of epistaxis on 08/29 as above. Note significant hypotension prior to arrival. Continue to observe closely during this hospitalization. 1 L of lactated Ringer's by means of IV bolus was initiated in the emergency room with improved symptoms. Qualifiers: Hypertension type: essential hypertension Qualified Code(s): I10 - Essential (primary) hypertension (2) Coronary artery disease SNOMED Code(s): 84801664 Code(s): I25.10 - ATHSCL HEART DISEASE OF [place] CORONARY ARTERY W/O ANG PCTRS Status: Acute Priority: High Current Visit: Yes Onset Date: 05/17/19 Annotation/Comment:: Known inferior wall STEMI on 05/17/2020 with PTCA/stent x3 on 05/18/2020 as above. No chest pain or anginal type symptoms, however no significant hypotension prior to arrival to our facility. In addition, possible new incomplete left bundle branch block and evidence of lateral wall cardiac ischemia. Initiate standard rule out [place] orders with cardiology consultation depending on her clinical course. 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 She does need further update of her routine preventive health care including colonoscopy, mammogram, etc. once her cardiac status has been determined. Cardiac enzymes are normal, including mild change in troponin I secondary to her CHF. Qualifiers: Coronary Disease-Associated Artery/Lesion type: [place] artery [place] vs. transplanted heart: eagle heart Associated angina: without angina Qualified Code(s): I25.10 - Atherosclerotic heart disease of [place] coronary artery without angina pectoris (3) CHF (congestive heart failure) SNOMED Code(s): 91824416 Code(s): I50.9 - HEART FAILURE, UNSPECIFIED Status: Acute Priority: Medium Current Visit: Yes Onset Date: 08/31/20 Annotation/Comment:: Note that patient did have a mild exacerbation of her known CHF likely secondary to her hypotension with no true chest pain or anginal type symptoms. Note recent change of her Entresto therapy. No direct clinical evidence of significant CHF by clinical exam with previous echocardiogram on 08/20/2020 showing improved cardiac function. IV Lasix therapy with caution secondary to recent hypotension. Qualifiers: Heart failure type: combined systolic and diastolic Heart failure chronicity: acute on chronic Qualified Code(s): I50.43 - Acute on chronic combined systolic (congestive) and diastolic (congestive) heart failure (4) COPD (chronic obstructive pulmonary disease) SNOMED Code(s): 71501221 Code(s): J44.9 - CHRONIC OBSTRUCTIVE PULMONARY DISEASE, UNSPECIFIED Status: Chronic Priority: Medium Current Visit: Yes Annotation/Comment:: No recent fever or bronchitic type symptoms despite elevated lactic acid as above. Observe for now. Qualifiers: COPD type: emphysema Emphysema type: panlobular Qualified Code(s): J43.1 - Panlobular emphysema (5) Lactic acid blood increased SNOMED Code(s): 9250650 Code(s): R79.89 - OTHER SPECIFIED ABNORMAL FINDINGS OF BLOOD CHEMISTRY Status: Acute Priority: High Current Visit: Yes Onset Date: 08/31/20 Annotation/Comment:: No fever or clinical evidence of infection. Blood cultures and antibiotic therapy are not indicated at this time. Repeat lactic acid level with next set of cardiac enzymes. 1 L of lactated Ringer's was initiated in the emergency room as above. Attempt to obtain a UA with culture and sensitivity after admission. Continue IV fluids with caution secondary to her CHF. (6) Leukocytosis SNOMED Code(s): 137745087, 038590156 Code(s): D72.829 - ELEVATED WHITE BLOOD CELL COUNT, UNSPECIFIED Status: Acute Priority: High Current Visit: Yes Onset Date: 08/31/20 Annotation/Comment:: As above Qualifiers: Leukocytosis type: bandemia Qualified Code(s): D72.825 - [place] (7) Dyslipidemia SNOMED Code(s): 344836910 Code(s): E78.5 - HYPERLIPIDEMIA, UNSPECIFIED Status: Chronic Priority: Medium Current Visit: Yes Annotation/Comment:: Lipid panel glycosylated hemoglobin in the a.m. (8) Incomplete left bundle branch block SNOMED Code(s): 223585535 Code(s): I44.7 - LEFT BUNDLE-BRANCH BLOCK, UNSPECIFIED Status: Acute Priority: High Current Visit: Yes Onset Date: 08/31/20 Annotation/Comment:: As above - Problem List Review Problem List Initiated/Reviewed/Updated: Yes - My Orders Last 24 Hours: My Active Orders 08/31/20 Breakfast Nothing per Oral Now Diet [DIET] 08/31/20 11:46 Cardiac Monitoring [RC] . DIRECTED EKG Documentation Completion [RC] ASDIRECTED Oxygen Therapy, ED [RC] PRN Peripheral IV Care [RC] . DIRECTED Pulse Oximetry [RC] CONTINUOUS Up With Assistance [RC] PFP Vital Signs [RC] PFP Chest 1V Frontal [CR] Stat Sodium Chloride 0.9% [Saline Flush] 10 ml FLUSH ASDIRECTED PRN Obtain Past Medical Record [OM.PC] Urgent Peripheral IV Insertion Adult [OM.PC] Stat Resuscitation Status Stat EKG 12 Lead [EK] Stat 08/31/20 12:19 Lactated Ringers [Ringers, Lactated] 1,000 ml IV .BOLUS - Assessment/Plan Admission H&P: Please use this note as an admission H&P Last 24 Hours: My Active Orders 08/31/20 Breakfast Nothing per Oral Now Diet [DIET] 08/31/20 11:46 Cardiac Monitoring [RC] . DIRECTED EKG Documentation Completion [RC] ASDIRECTED Oxygen Therapy, ED [RC] PRN Peripheral IV Care [RC] . DIRECTED Pulse Oximetry [RC] CONTINUOUS Up With Assistance [RC] PFP Vital Signs [RC] PFP Chest 1V Frontal [CR] Stat Sodium Chloride 0.9% [Saline Flush] 10 ml FLUSH ASDIRECTED PRN Obtain Past Medical Record [OM.PC] Urgent Peripheral IV Insertion Adult [OM.PC] Stat Resuscitation Status Stat EKG 12 Lead [EK] Stat 08/31/20 12:19 Lactated Ringers [Ringers, Lactated] 1,000 ml IV .BOLUS Assessment:: As above Plan: As above. Extensive precautions were given to the patient and her , who are in agreement with the treatment plan. The patient's condition is stable enough for observation status and general supervision.
[2020-08-31] MEDS ORDERED: Famotidine 20 MG/2 ML SDV IVPUSH ONE (11:46)
[2020-08-31] MEDS: Sodium Chloride 0.9% 10 ML Syringe FLUSH PRN ×2 (11:53→15:13)
[2020-08-31 12:15] LABS: PTT,PARTIAL THROMBOPLSTIN TIME 25.3 SEC (24.5-32.8)
[2020-08-31] MEDS ORDERED: Lactated Ringers 1,000 ML IV ONE (12:19)
[2020-08-31 12:27] LABS: CHLORIDE,CL 102 mmol/L (98-107); SODIUM,NA 138 mmol/L (136-145)
[2020-08-31] MEDS ORDERED: Sodium Chloride 0.9% 10 ML Syringe FLUSH PRN (14:11)
[2020-08-31] MEDS ORDERED: Acetaminophen 325 MG Tab PO PRN (15:00)
[2020-08-31] MEDS: Furosemide 40 MG/4 ML VIAL IVPUSH SCH (15:08)
[2020-08-31] MEDS: Lactated Ringers 1,000 ML IV SCH (15:08)
[2020-08-31] MEDS: Potassium Chloride 20 MEQ Tab.ER PO SCH (17:24)
[2020-08-31] MEDS: SACUBITRIL PO SCH (17:25)
[2020-08-31] MEDS: Ticagrelor 90 MG Tab PO SCH (17:25)
[2020-08-31] MEDS: [UNRECOGNIZED DRUG - OTHER] INH SCH (17:25)
[2020-08-31] MEDS: FLUTICASONE INH SCH (17:25)
[2020-08-31] MEDS: VALSARTAN PO SCH (17:25)
[2020-08-31] MEDS ORDERED: ZAFIRLUKAST 20 MG PO SCH (20:00)
[2020-08-31] MEDS ORDERED: Magnesium Oxide 400 MG Tab PO SCH (20:00)
[2020-09-01] MEDS: Lactated Ringers 1,000 ML IV SCH (01:21)
[2020-09-01] MEDS: Furosemide 40 MG/4 ML VIAL IVPUSH SCH (03:28)
[2020-09-01 07:32] LABS: HEMOGLOBIN A1C 5.5 % (4.3-5.7)
[2020-09-01] MEDS: Ticagrelor 90 MG Tab PO SCH (07:34)
[2020-09-01] MEDS: Potassium Chloride 20 MEQ Tab.ER PO SCH (07:34)
[2020-09-01 07:41] LABS: CHLORIDE,CL 104 mmol/L (98-107)
[2020-09-01] MEDS: FLUTICASONE INH SCH (07:56)
[2020-09-01] MEDS: [UNRECOGNIZED DRUG - OTHER] INH SCH (07:56)
[2020-09-01] MEDS: SACUBITRIL PO SCH (07:59)
[2020-09-01] MEDS: VALSARTAN PO SCH (07:59)
[2020-09-01 08:00] LABS: SODIUM,NA 139 mmol/L (136-145)
[2020-09-01] MEDS ORDERED: Rosuvastatin 10 MG Tab PO SCH (08:00)
[2020-09-01] MEDS ORDERED: Lisinopril 10 MG Tab PO SCH (08:00)
[2020-09-01] MEDS ORDERED: Aspirin 81 MG Tab.Chew PO SCH (08:00)
[2020-09-01] MEDS ORDERED: Fluticasone Propionate Nasal Spray 16 GM Bottle NASBOTH SCH (08:00)
[2020-09-01] MEDS ORDERED: Multivitamin Tab PO SCH (08:00)
[2020-09-01] MEDS ORDERED: Metoprolol Succinate 50 MG Tab.ER PO SCH (08:00)
[2020-09-01] MEDS ORDERED: Flaxseed Oil 1,000 MG Cap PO SCH (08:00)
--- NOTE | 2020-09-01 09:31 | PCM.DCSUM1 ---
Discharge Summary - Hospital Course HPI Initial Comments: See emergency room note/mention H&P Brief History: See emergency room note/admission H&P Diagnosis: Stroke: No Modified Julian Scale: No Symptoms at All Modified [place] Scale Score: 0 - Discharge Data Discharge Date: 09/01/20 Discharge Disposition: Refer to Observation Condition: Fair - Referral to Home Health Primary Care Physician: Terri Juarez NP - Discharge Diagnosis/Problem(s) (1) Coronary artery disease SNOMED Code(s): 31171471 ICD Code: I25.10 - ATHSCL HEART DISEASE OF [place] CORONARY ARTERY W/O ANG PCTRS Status: Acute Priority: High Current Visit: Yes Onset Date: 05/17/19 Problem Details: Telephone consultation at 9:05 AM this morning with Dr. Dudley, hospitalist at [facility], who does accept the patient for direct admission and further cardiology and/or ENT consultation, w ith no other recommendations given prior to transfer. 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 Note progressive diffuse T wave inversions with resolution of previous borderline probable new incomplete left bundle branch block. She denied any chest pain or other anginal type symptoms either prior to admission or throughout this hospitalization. Note that her ASA and Brilinta were continued despite her epistaxis secondary to her known heart disease, previous stents, and possible progressive lateral wall cardiac ischemia. Known inferior wall STEMI on 05/17/2020 with PTCA/stent x3 on 05/18/2020 as above. No chest pain or anginal type symptoms as above, however note significant hypotension prior to arrival to our facility. Standard rule out OH orders have been negative to this point, however note progressive increasing change of her troponin I, which is still normal, despite improving CHF and BNP during this hospitalization. nding on her clinical course. The patient already has an appointment scheduled with her hammer operator in September. She does need further update of her routine preventive health care including colonoscopy, mammogram, etc. once her cardiac status has been determined. Cardiac enzymes are normal, including mild change in troponin I secondary to her CHF. Qualifiers: Coronary Disease-Associated Artery/Lesion type: [place] artery [place] vs. transplanted heart: [place] heart Associated angina: without angina Qualified Code(s): I25.10 - Atherosclerotic heart disease of [place] coronary artery without angina pectoris (2) Epistaxis SNOMED Code(s): 097759632 ICD Code: R04.0 - EPISTAXIS Status: Acute Priority: High Current Visit: Yes Onset Date: ~08/29/20 Problem Details: Refractory left-sided epistaxis to anterior posterior Rhino Rocket in this emergency room on 08/29/2020 by anot her provider. Patient was continued on Brilinta and ASA secondary to her significant coronary artery disease as above. Rhino Rocket was removed this morning with persistent acute bleeding. Silver nitrate sticks x2 were used for cauterization in the lateral wall of the left naris with only moderate improvement. Subsequent bilateral nasal packing with 1/4 inch gauze strips with some additional improvement, however persistent mild bleeding noted in the hypopharynx. Continue to observe closely by accepting providers with possible ENT consultation for further cauterization, etc.. (3) Incomplete left bundle branch block SNOMED Code(s): 633553734 ICD Code: I44.7 - LEFT BUNDLE-BRANCH BLOCK, UNSPECIFIED Status: Acute Priority: High Current Visit: Yes Onset Date: 08/31/20 Problem Details: As above, however resolved on 09/01/2020. (4) Hypertension SNOMED Code(s): 90871084 ICD Code: I10 - ESSENTIAL (PRIMARY) HYPERTENSION Status: Chronic Priority: High Current Visit: Yes Problem Details: Blood pressure is much i mproved throughout this hospitalization. Continue to observe closely by accepting providers. Known history of hypertension, which has been under relatively moderate control since her episode of epistaxis on 08/29 as above. Note significant hypotension prior to arrival as per emergency room note. 1 L of lactated Ringer's by means of IV bolus was initiated in the emergency room with improved symptoms prior to admission. Secondary to initial lactic acid elevation IV fluids were continued throughout this hospitalization. Qualifiers: Hypertension type: essential hypertension Qualified Code(s): I10 - Essential (primary) hypertension (5) CHF (congestive heart failure) SNOMED Code(s): 34077843 ICD Code: I50.9 - HEART FAILURE, UNSPECIFIED Status: Acute Priority: Medium Current Visit: Yes Onset Date: 08/31/20 Problem Details: Note that patient did have a mild exacerbation of her known CHF likely secondary to her hypotension with improving BNP and CHF by clinical exam. No true chest pain or anginal type symptoms. Note recent change of her Entresto therapy. Previous echocardiogram on 08/20/2020 showed significantly improved cardiac function, although persistent mild ischemic cardiomyopathy. IV Lasix and oral potassium chloride therapy were initiated with caution secondary to recent hypotension, which did not recur during this hospitalization. Qualifiers: Heart failure type: combined systolic and diastolic Heart failure chronicity: acute on chronic Qualified Code(s): I50.43 - Acute on chronic combined systolic (congestive) and diastolic (congestive) heart failure (6) COPD (chronic obstructive pulmonary disease) SNOMED Code(s): 23184012 ICD Code: J44.9 - CHRONIC OBSTRUCTIVE PULMONARY DISEASE, UNSPECIFIED Status: Chronic Priority: Medium Current Visit: Yes Problem Details: No recent fever or bronchitic type symptoms despite elevated lactic acid as above. Observe for now. Qualifiers: COPD type: emphysema Emphysema type: panlobular Qualified Code(s): J43.1 - Panlobular emphysema (7) Lactic acid blood increased SNOMED Code(s): 4983567 ICD Code: R79.89 - OTHER SPECIFIED ABNORMAL FINDINGS OF BLOOD CHEMISTRY Status: Acute Priority: High Current Visit: Yes Onset Date: 08/31/20 Problem Details: Follow-up 4-hour lactic acid level was normal after 1 L IV bolus of lactated Ringer's with continuation of IV fluids during this hospitalization. No fever or clinical evidence of infection or sepsis. Blood cultures and antibiotic therapy were not indicated with no evidence of pneumonia or UTI during this hospitalization. IV fluids were continued with caution se condary to her CHF. (8) Leukocytosis SNOMED Code(s): 895577305, 205182640 ICD Code: D72.829 - ELEVATED WHITE BLOOD CELL COUNT, UNSPECIFIED Status: Acute Priority: High Current Visit: Yes Onset Date: 08/31/20 Problem Details: As above. Resolved at time of transfer. Qualifiers: Leukocytosis type: bandemia Qualified Code(s): D72.825 - Bandemia (9) Dyslipidemia SNOMED Code(s): 093725994 ICD Code: E78.5 - HYPERLIPIDEMIA, UNSPECIFIED Status: Chronic Priority: Medium Current Visit: Yes Problem Details: Lipid panel was excellent with current medical therapy on 09/01/2020. Glycosylated hemoglobin normal at 5.5% on 09/01/2020 in the a.m. patient was congratulated about her significant intentional weight loss after recent OH on 05/17/2020 as above. (10) Hypokalemia SNOMED Code(s): 91708114 ICD Code: E87.6 - HYPOKALEMIA Status: Acute Priority: Medium Current Visit: Yes Onset Date: 09/01/20 Problem Details: Mild hypokalemia secondary to IV Lasix therapy and in spite of previously initiated oral potassium chloride supplementation. Close follow-up and further supplementation by accepting provider. (11) Hypoalbuminemia SNOMED Code(s): 618534140 ICD Code: E88.09 - OTH DISORDERS OF PLASMA-PROTEIN METABOLISM, NEC Status: Acute Priority: Medium Current Visit: Yes Onset Date: 09/01/20 Problem Details: Observe for now (12) PVCs (premature ventricular contractions) SNOMED Code(s): 33381583 ICD Code: I49.3 - VENTRICULAR PREMATURE DEPOLARIZATION Status: Acute Priority: Medium Current Visit: Yes Problem Details: Nonsymptomatic. Observe for now. - Patient Summary/Data Operative Procedure(s) Performed: None other than silver nitrate nasal cauterization as above. Complications: None Consults: Hospitalist as above Labs Pending at D/C: None Recommended Follow-up Testing/Procedures: As above Planned Operative Procedure(s) after DC: 1. Possible heart catheterization versus Cardiolite stress test. 2. Possible ENT consultation for nasal cauterization/treatment - Patient Instructions Diet: NPO Activity: Bedrest Driving: Do Not Drive Showering/Bathing: No Showering Notify Provider of: Increased Pain, Nausea and/or Vomiting - Discharge Plan *PRESCRIPTION DRUG MONITORING PROGRAM REVIEWED*: Not Applicable *COPY OF PRESCRIPTION DRUG MONITORING REPORT IN PATIENT STEFFEN: Not Applicable Home Medications: Home Meds Imipramine HCl [Imipramine] 1 tab PO BEDTIME 05/17/20 [History] Potassium Chloride [Klor-Con M20] 1 tab PO DAILY 05/17/20 [History] Aspirin 1 tab PO DAILY 08/31/20 [History] Biotin/Keratin [Biotin Plus Keratin Tablet] 1 tab PO DAILY 08/31/20 [History] Calcium Carbonate [Calcium] 1 tab PO DAILY 08/31/20 [History] Cholecalciferol (Vitamin D3) [Vitamin D3] 5,000 unit PO DAILY 08/31/20 [History] Fish Oil/DHA/EPA [Fish Oil 1,200 MG] 1 cap PO BEDTIME 08/31/20 [History] Flaxseed Oil [[place]-3 Flaxseed Oil] 1 cap PO DAILY 08/31/20 [History] Fluticasone Propionate [Flonase] 2 spray NASBOTH DAILY 08/31/20 [History] Fluticasone/Salmeterol [Advair 250-50] 1 puff INH BID 08/31/20 [History] Furosemide [Lasix] 1 tab PO DAILY 08/31/20 [History] Garlic 1 cap PO DAILY 08/31/20 [History] Magnesium Oxide 1 tab PO BEDTIME 08/31/20 [History] Metoprolol Succinate 1 tab PO DAILY 08/31/20 [History] Multivitamin with Minerals [One Daily Plus Minerals] 1 tab PO DAILY 08/31/20 [History] Rosuvastatin [Crestor] 0.5 tab PO Q2D 08/31/20 [History] Sacubitril/Valsartan [Entresto 49 mg-51 mg Tablet] 1 tab PO BID 08/31/20 [History] Ticagrelor [Brilinta] 1 tab PO BID 08/31/20 [History] Ubidecarenone [Co Q-10] 1 cap PO DAILY 08/31/20 [History] Zafirlukast [Accolate] 1 tab PO BEDTIME 08/31/20 [History] Oxygen Therapy Mode: Room Air Forms: ED Department Discharge, Interfacility Transfer EMTALA Referrals: Terri Juarez, [facility] [Primary Care Provider] - - Discharge Summary/Plan Comment DC Time >30 min.: Yes (Coordination of care ) Discharge Summary/Plan Comment: As above. Extensive precautions were given to the patient, who is in agreement with the treatment plan. Patient has been n.p.o. since 2100 hrs. yesterday evening and will remain so until otherwise directed by her accepting providers. Ambulance transfer via ambulance to [facility] as above. - General Info Date of Service: 09/01/20 Admission Dx/Problem (Free Text: 1. Coronary artery disease with increasing lateral wall cardiac ischemia 2. Hypotension with history of hypertension 3. Epistaxis 4. Lactic acid elevation Functional Status: Reports: Pain Controlled, Tolerating Diet, Ambulating, Urinating, New Symptoms (Returned left-sided epistaxis as above), Incentive Spirometry Numeric/FACES Score: 0 - Review of Systems General: Reports: No Symptoms. Denies: Fever, Weakness, Fatigue, Malaise, Chills, Night Sweats, Appetite (Good) HEENT: Reports: Glasses, Post Nasal Drip (Return left-sided epistaxis despite Rhino Rocket), Sinus Congestion. Denies: Dysphasia, Ear Pain, Eye Pain, Sore Throat, Rhinitis, Visual Changes Pulmonary: Reports: No Symptoms. Denies: Shortness of Breath, Pleuritic Chest Pain, Cough, Sputum, Hemoptysis, Wheezing Cardiovascular: Reports: No Symptoms. Denies: Chest Pain, Palpitations, Dyspnea on Exertion, Orthopnea, PND, Edema, Lightheadedness Gastrointestinal: Reports: No Symptoms. Denies: Abdominal Pain, Constipation, Decreased Appetite, Diarrhea, Difficulty Swallowing, Flatus, Hematochezia, Nausea, Vomiting Genitourinary: Reports: No Symptoms. Denies: Dysuria, Frequency, Burning, Pain, Urgency, Incontinence, Hematuria, Retention, Flank Pain Musculoskeletal: Reports: No Symptoms. Denies: Neck Pain, Shoulder Pain, Arm Pain, Hand Pain, Back Pain, Leg Pain Skin: Reports: Bruising (Stable). Denies: Diaphoresis, Rash Neurological: Reports: No Symptoms. Denies: Confusion, Dizziness, Headache, Numbness, Paresthesia, Tingling, Weakness Psychiatric: Reports: No Symptoms. Denies: Confusion, Depression, Agitation, Cravings, Hallucinations, Homicidal Ideation - Patient Data Vitals - Most Recent: Last Vital Signs Temp 36.5 C 09/01/20 08:00 Pulse 89 09/01/20 08:00 Resp 19 09/01/20 08:00 BP 130/93 H 09/01/20 08:00 Pulse Ox 97 09/01/20 08:00 Vital Signs - 24 hr 08/31/20 08/31/20 08/31/20 11:46 12:00 12:15 Temperature [ 36.7 C Oral] Temperature [ Temporal] Pulse, Peripheral Pulse, 87 105 H 105 H Peripheral [ Pulse Oximetry] Respiratory 20 20 22 H Rate Blood Pressure Blood Pressure 127/86 109/77 120/105 H [Right Upper Arm] O2 Sat by Pulse 97 94 L 96 Oximetry 08/31/20 08/31/20 08/31/20 12:30 12:45 13:00 Temperature [ Oral] Temperature [ Temporal] Pulse, Peripheral Pulse, 105 H 99 98 Peripheral [ Pulse Oximetry] Respiratory 24 H 23 H 20 Rate Blood Pressure Blood Pressure 112/88 127/87 147/97 H [Right Upper Arm] O2 Sat by Pulse 94 L 94 L 96 Oximetry 08/31/20 08/31/20 08/31/20 13:18 14:11 17:31 Temperature [ 35.9 C L Oral] Temperature [ Temporal] Pulse, Peripheral Pulse, 91 109 H Peripheral [ Pulse Oximetry] Respiratory 20 18 Rate Blood Pressure Blood Pressure 142/91 H 135/99 H [Right Upper Arm] O2 Sat by Pulse 96 97 97 Oximetry 08/31/20 09/01/20 09/01/20 19:38 00:00 03:30 Temperature [ 36.5 C 36.6 C 36.3 C Oral] Temperature [ Temporal] Pulse, Peripheral Pulse, 103 H 86 86 Peripheral [ Pulse Oximetry] Respiratory 16 16 16 Rate Blood Pressure Blood Pressure 123/90 113/86 138/98 H [Right Upper Arm] O2 Sat by Pulse 98 97 97 Oximetry 09/01/20 09/01/20 07:33 08:00 Temperature [ Oral] Temperature [ 36.5 C Temporal] Pulse, 89 Peripheral Pulse, 89 Peripheral [ Pulse Oximetry] Respiratory 19 Rate Blood Pressure 130/93 H Blood Pressure 130/93 H [Right Upper Arm] O2 Sat by Pulse 97 Oximetry Weight - Most Recent: 97.432 kg I&O - Last 24 hours: Intake & Output 08/31/20 09/01/20 09/01/20 22:59 06:59 14:59 Intake Total 266 1200 Output Total 1250 1200 Balance -984 0 Imaging Impressions - Last 24 hrs: monitor technician shows overall sinus rhythm with heart rate in the 90s to 100s with occasional uniform PVCs but no other significant arrhythmia. Chest x-ray, portable, on 08/31/2020 shows moderate pulmonary obstructive disease with no cardiomegaly, CHF, pulmonary infiltrates, pneumothorax, etc. Lab Results - Last 24 hrs: Laboratory Results - last 24 hr 08/31/20 08/31/20 08/31/20 Range/Units 11:55 11:55 11:55 WBC 16.7 H (4.0-10.2) K/uL RBC 5.33 H (3.77-5.09) M/uL Hgb 15.8 H (11.7-15.5) g/dL Hct 48.2 H (34.0-46.0) % MCV 90.4 (84.0-98.0) fL MCH 29.6 (28.2-33.3) pg MCHC 32.8 (31.7-36.0) g/dL RDW 14.9 H (11.2-14.1) % Plt Count 317 (150-350) K/uL Neut % (Auto) 82.0 H (45.0-80.0) % Lymph % (Auto) 9.5 L (10.0-50.0) % Patrick % (Auto) 8.3 (2.0-14.0) % Eos % (Auto) 0.1 (0.0-5.0) % Baso % (Auto) 0.1 (0.0-2.0) % Neut # (Auto) 13.66 H (1.40-7.00) K/uL Lymph # (Auto) 1.59 (0.50-3.50) K/uL Patrick # (Auto) 1.39 H (0.00-1.00) K/uL Eos # (Auto) 0.01 (0.00-0.50) K/uL Baso # (Auto) 0.02 (0.00-0.20) K/uL PT 9.6 (9.5-12.0) SEC INR 1.0 APTT 25.3 (24.5-32.8) SEC D-Dimer, Quantitative 246 (0-400) ng/mL Sodium (136-145) mmol/L Potassium (3.5-5.1) mmol/L Chloride (98-107) mmol/L Carbon Dioxide (21.0-32.0) mmol/L BUN (7-18) mg/dL Creatinine (0.51-1.17) mg/dL Est Cr Clr Drug Dosing Estimated GFR (MDRD) mL/min Glucose (74-106) mg/dL Hemoglobin A1c (4.3-5.7) % Lactic Acid (0.4-2.0) mmol/L Uric Acid (2.6-7.2) mg/dL Calcium (8.5-10.1) mg/dL Magnesium (1.8-2.4) mg/dL Total Bilirubin (0.2-1.0) mg/dL AST (15-37) U/L ALT (12-78) U/L Alkaline Phosphatase (46-116) IU/L Creatine Kinase (26-308) U/L Creatine Kinase Index (0.0-2.5) % CK-MB (CK-2) (0.00-3.60) ng/mL Troponin I (0.000-0.056) ng/mL NT-Pro-B Natriuret Pep (0-125) pg/mL Total Protein (6.4-8.2) g/dL Albumin (3.4-5.0) g/dL Triglycerides (30-150) mg/dL Cholesterol (100-200) mg/dL LDL Cholesterol, Calc (0-100) mg/dL HDL Cholesterol (40-60) mg/dL TSH, Ultra Sensitive (0.358-3.740) mIU/mL Specimen Type Urine Color Urine Appearance Urine pH (5.0-9.0) Ur Specific Laura (1.005-1.030) Urine Protein (NEGATIVE) mg/dL Urine Glucose (UA) (NEGATIVE) mg/dL Urine Ketones (NEGATIVE) mg/dL Urine Occult Blood (NEGATIVE) Urine Nitrite (NEGATIVE) Urine Bilirubin (NEGATIVE) Urine Urobilinogen (0.2-1.0) E.U./dL Ur Leukocyte Esterase (NEGATIVE) U Hyaline Cast (Auto) Urine RBC /HPF Urine WBC /HPF Ur Epithelial Cells /LPF Urine Bacteria (NONE TO FEW) /HPF 08/31/20 08/31/20 08/31/20 Range/Units 11:55 11:55 15:10 WBC (4.0-10.2) K/uL RBC (3.77-5.09) M/uL Hgb (11.7-15.5) g/dL Hct (34.0-46.0) % MCV (84.0-98.0) fL MCH (28.2-33.3) pg MCHC (31.7-36.0) g/dL RDW (11.2-14.1) % Plt Count (150-350) K/uL Neut % (Auto) (45.0-80.0) % Lymph % (Auto) (10.0-50.0) % Patrick % (Auto) (2.0-14.0) % Eos % (Auto) (0.0-5.0) % Baso % (Auto) (0.0-2.0) % Neut # (Auto) (1.40-7.00) K/uL Lymph # (Auto) (0.50-3.50) K/uL Patrick # (Auto) (0.00-1.00) K/uL Eos # (Auto) (0.00-0.50) K/uL Baso # (Auto) (0.00-0.20) K/uL PT (9.5-12.0) SEC INR APTT (24.5-32.8) SEC D-Dimer, Quantitative (0-400) ng/mL Sodium 138 (136-145) mmol/L Potassium 3.9 (3.5-5.1) mmol/L Chloride 102 (98-107) mmol/L Carbon Dioxide 24.1 (21.0-32.0) mmol/L BUN 16 (7-18) mg/dL Creatinine 1.03 (0.51-1.17) mg/dL Est Cr Clr Drug Dosing TNP Estimated GFR (MDRD) 54 mL/min Glucose 124 H (74-106) mg/dL Hemoglobin A1c (4.3-5.7) % Lactic Acid 2.3 H (0.4-2.0) mmol/L Uric Acid 4.6 (2.6-7.2) mg/dL Calcium 9.7 (8.5-10.1) mg/dL Magnesium 2.1 (1.8-2.4) mg/dL Total Bilirubin 0.8 (0.2-1.0) mg/dL AST 15 (15-37) U/L ALT 24 (12-78) U/L Alkaline Phosphatase 76 (46-116) IU/L Creatine Kinase 51 48 (26-308) U/L Creatine Kinase Index 2.0 2.7 H (0.0-2.5) % CK-MB (CK-2) 1.00 1.30 (0.00-3.60) ng/mL Troponin I 0.012 0.014 (0.000-0.056) ng/mL NT-Pro-B Natriuret Pep 4484 H (0-125) pg/mL Total Protein 7.7 (6.4-8.2) g/dL Albumin 3.8 (3.4-5.0) g/dL Triglycerides (30-150) mg/dL Cholesterol (100-200) mg/dL LDL Cholesterol, Calc (0-100) mg/dL HDL Cholesterol (40-60) mg/dL TSH, Ultra Sensitive 1.908 (0.358-3.740) mIU/mL Specimen Type Urine Color Urine Appearance Urine pH (5.0-9.0) Ur Specific Laura (1.005-1.030) Urine Protein (NEGATIVE) mg/dL Urine Glucose (UA) (NEGATIVE) mg/dL Urine Ketones (NEGATIVE) mg/dL Urine Occult Blood (NEGATIVE) Urine Nitrite (NEGATIVE) Urine Bilirubin (NEGATIVE) Urine Urobilinogen (0.2-1.0) E.U./dL Ur Leukocyte Esterase (NEGATIVE) U Hyaline Cast (Auto) Urine RBC /HPF Urine WBC /HPF Ur Epithelial Cells /LPF Urine Bacteria (NONE TO FEW) /HPF 08/31/20 08/31/20 08/31/20 Range/Units 15:10 16:00 21:10 WBC (4.0-10.2) K/uL RBC (3.77-5.09) M/uL Hgb (11.7-15.5) g/dL Hct (34.0-46.0) % MCV (84.0-98.0) fL MCH (28.2-33.3) pg MCHC (31.7-36.0) g/dL RDW (11.2-14.1) % Plt Count (150-350) K/uL Neut % (Auto) (45.0-80.0) % Lymph % (Auto) (10.0-50.0) % Patrick % (Auto) (2.0-14.0) % Eos % (Auto) (0.0-5.0) % Baso % (Auto) (0.0-2.0) % Neut # (Auto) (1.40-7.00) K/uL Lymph # (Auto) (0.50-3.50) K/uL Patrick # (Auto) (0.00-1.00) K/uL Eos # (Auto) (0.00-0.50) K/uL Baso # (Auto) (0.00-0.20) K/uL PT (9.5-12.0) SEC INR APTT (24.5-32.8) SEC D-Dimer, Quantitative (0-400) ng/mL Sodium (136-145) mmol/L Potassium (3.5-5.1) mmol/L Chloride (98-107) mmol/L Carbon Dioxide (21.0-32.0) mmol/L BUN (7-18) mg/dL Creatinine (0.51-1.17) mg/dL Est Cr Clr Drug Dosing Estimated GFR (MDRD) mL/min Glucose (74-106) mg/dL Hemoglobin A1c (4.3-5.7) % Lactic Acid 1.9 (0.4-2.0) mmol/L Uric Acid (2.6-7.2) mg/dL Calcium (8.5-10.1) mg/dL Magnesium (1.8-2.4) mg/dL Total Bilirubin (0.2-1.0) mg/dL AST (15-37) U/L ALT (12-78) U/L Alkaline Phosphatase (46-116) IU/L Creatine Kinase 55 (26-308) U/L Creatine Kinase Index 1.6 (0.0-2.5) % CK-MB (CK-2) 0.90 (0.00-3.60) ng/mL Troponin I 0.021 (0.000-0.056) ng/mL NT-Pro-B Natriuret Pep (0-125) pg/mL Total Protein (6.4-8.2) g/dL Albumin (3.4-5.0) g/dL Triglycerides (30-150) mg/dL Cholesterol (100-200) mg/dL LDL Cholesterol, Calc (0-100) mg/dL HDL Cholesterol (40-60) mg/dL TSH, Ultra Sensitive (0.358-3.740) mIU/mL Specimen Type Urincc Urine Color Yellow Urine Appearance Clear Urine pH 6.0 (5.0-9.0) Ur Specific Laura 1.015 (1.005-1.030) Urine Protein Negative (NEGATIVE) mg/dL Urine Glucose (UA) Negative (NEGATIVE) mg/dL Urine Ketones Negative (NEGATIVE) mg/dL Urine Occult Blood Negative (NEGATIVE) Urine Nitrite Negative (NEGATIVE) Urine Bilirubin Negative (NEGATIVE) Urine Urobilinogen 0.2 (0.2-1.0) E.U./dL Ur Leukocyte Esterase Negative (NEGATIVE) U Hyaline Cast (Auto) Few Urine RBC 0-5 /HPF Urine WBC 0-5 /HPF Ur Epithelial Cells Few /LPF Urine Bacteria Few (NONE TO FEW) /HPF 09/01/20 09/01/20 09/01/20 Range/Units 07:00 07:00 07:00 WBC 9.9 (4.0-10.2) K/uL RBC 4.80 (3.77-5.09) M/uL Hgb 14.4 (11.7-15.5) g/dL Hct 43.8 (34.0-46.0) % MCV 91.3 (84.0-98.0) fL MCH 30.0 (28.2-33.3) pg MCHC 32.9 (31.7-36.0) g/dL RDW 14.8 H (11.2-14.1) % Plt Count 274 (150-350) K/uL Neut % (Auto) 72.7 (45.0-80.0) % Lymph % (Auto) 15.6 (10.0-50.0) % Patrick % (Auto) 11.2 (2.0-14.0) % Eos % (Auto) 0.3 (0.0-5.0) % Baso % (Auto) 0.2 (0.0-2.0) % Neut # (Auto) 7.22 H (1.40-7.00) K/uL Lymph # (Auto) 1.55 (0.50-3.50) K/uL Patrick # (Auto) 1.11 H (0.00-1.00) K/uL Eos # (Auto) 0.03 (0.00-0.50) K/uL Baso # (Auto) 0.02 (0.00-0.20) K/uL PT (9.5-12.0) SEC INR APTT (24.5-32.8) SEC D-Dimer, Quantitative (0-400) ng/mL Sodium 139 (136-145) mmol/L Potassium 3.4 L (3.5-5.1) mmol/L Chloride 104 (98-107) mmol/L Carbon Dioxide 26.3 (21.0-32.0) mmol/L BUN 17 (7-18) mg/dL Creatinine 0.88 (0.51-1.17) mg/dL Est Cr Clr Drug Dosing 68.92 Estimated GFR (MDRD) > 60 mL/min Glucose 102 (74-106) mg/dL Hemoglobin A1c 5.5 (4.3-5.7) % Lactic Acid (0.4-2.0) mmol/L Uric Acid (2.6-7.2) mg/dL Calcium 8.6 (8.5-10.1) mg/dL Magnesium (1.8-2.4) mg/dL Total Bilirubin 0.8 (0.2-1.0) mg/dL AST 13 L (15-37) U/L ALT 22 (12-78) U/L Alkaline Phosphatase 62 (46-116) IU/L Creatine Kinase 42 (26-308) U/L Creatine Kinase Index 2.4 (0.0-2.5) % CK-MB (CK-2) 1.00 (0.00-3.60) ng/mL Troponin I 0.024 (0.000-0.056) ng/mL NT-Pro-B Natriuret Pep 962 H (0-125) pg/mL Total Protein 6.7 (6.4-8.2) g/dL Albumin 3.2 L (3.4-5.0) g/dL Triglycerides 105 (30-150) mg/dL Cholesterol 154 (100-200) mg/dL LDL Cholesterol, Calc 67 (0-100) mg/dL HDL Cholesterol 66 H (40-60) mg/dL TSH, Ultra Sensitive (0.358-3.740) mIU/mL Specimen Type Urine Color Urine Appearance Urine pH (5.0-9.0) Ur Specific Laura (1.005-1.030) Urine Protein (NEGATIVE) mg/dL Urine Glucose (UA) (NEGATIVE) mg/dL Urine Ketones (NEGATIVE) mg/dL Urine Occult Blood (NEGATIVE) Urine Nitrite (NEGATIVE) Urine Bilirubin (NEGATIVE) Urine Urobilinogen (0.2-1.0) E.U./dL Ur Leukocyte Esterase (NEGATIVE) U Hyaline Cast (Auto) Urine RBC /HPF Urine WBC /HPF Ur Epithelial Cells /LPF Urine Bacteria (NONE TO FEW) /HPF 09/01/20 Range/Units 07:00 WBC (4.0-10.2) K/uL RBC (3.77-5.09) M/uL Hgb (11.7-15.5) g/dL Hct (34.0-46.0) % MCV (84.0-98.0) fL MCH (28.2-33.3) pg MCHC (31.7-36.0) g/dL RDW (11.2-14.1) % Plt Count (150-350) K/uL Neut % (Auto) (45.0-80.0) % Lymph % (Auto) (10.0-50.0) % Patrick % (Auto) (2.0-14.0) % Eos % (Auto) (0.0-5.0) % Baso % (Auto) (0.0-2.0) % Neut # (Auto) (1.40-7.00) K/uL Lymph # (Auto) (0.50-3.50) K/uL Patrick # (Auto) (0.00-1.00) K/uL Eos # (Auto) (0.00-0.50) K/uL Baso # (Auto) (0.00-0.20) K/uL PT (9.5-12.0) SEC INR APTT (24.5-32.8) SEC D-Dimer, Quantitative (0-400) ng/mL Sodium (136-145) mmol/L Potassium (3.5-5.1) mmol/L Chloride (98-107) mmol/L Carbon Dioxide (21.0-32.0) mmol/L BUN (7-18) mg/dL Creatinine (0.51-1.17) mg/dL Est Cr Clr Drug Dosing Estimated GFR (MDRD) mL/min Glucose (74-106) mg/dL Hemoglobin A1c (4.3-5.7) % Lactic Acid 1.2 (0.4-2.0) mmol/L Uric Acid (2.6-7.2) mg/dL Calcium (8.5-10.1) mg/dL Magnesium (1.8-2.4) mg/dL Total Bilirubin (0.2-1.0) mg/dL AST (15-37) U/L ALT (12-78) U/L Alkaline Phosphatase (46-116) IU/L Creatine Kinase (26-308) U/L Creatine Kinase Index (0.0-2.5) % CK-MB (CK-2) (0.00-3.60) ng/mL Troponin I (0.000-0.056) ng/mL NT-Pro-B Natriuret Pep (0-125) pg/mL Total Protein (6.4-8.2) g/dL Albumin (3.4-5.0) g/dL Triglycerides (30-150) mg/dL Cholesterol (100-200) mg/dL LDL Cholesterol, Calc (0-100) mg/dL HDL Cholesterol (40-60) mg/dL TSH, Ultra Sensitive (0.358-3.740) mIU/mL Specimen Type Urine Color Urine Appearance Urine pH (5.0-9.0) Ur Specific Laura (1.005-1.030) Urine Protein (NEGATIVE) mg/dL Urine Glucose (UA) (NEGATIVE) mg/dL Urine Ketones (NEGATIVE) mg/dL Urine Occult Blood (NEGATIVE) Urine Nitrite (NEGATIVE) Urine Bilirubin (NEGATIVE) Urine Urobilinogen (0.2-1.0) E.U./dL Ur Leukocyte Esterase (NEGATIVE) U Hyaline Cast (Auto) Urine RBC /HPF Urine WBC /HPF Ur Epithelial Cells /LPF Urine Bacteria (NONE TO FEW) /HPF Laboratory Tests 08/31/20 08/31/20 08/31/20 Range/Units 11:55 11:55 11:55 WBC 16.7 H (4.0-10.2) K/uL RBC 5.33 H (3.77-5.09) M/uL Hgb 15.8 H (11.7-15.5) g/dL Hct 48.2 H (34.0-46.0) % MCV 90.4 (84.0-98.0) fL MCH 29.6 (28.2-33.3) pg MCHC 32.8 (31.7-36.0) g/dL RDW 14.9 H (11.2-14.1) % Plt Count 317 (150-350) K/uL Neut % (Auto) 82.0 H (45.0-80.0) % Lymph % (Auto) 9.5 L (10.0-50.0) % Patrick % (Auto) 8.3 (2.0-14.0) % Eos % (Auto) 0.1 (0.0-5.0) % Baso % (Auto) 0.1 (0.0-2.0) % Neut # (Auto) 13.66 H (1.40-7.00) K/uL Lymph # (Auto) 1.59 (0.50-3.50) K/uL Patrick # (Auto) 1.39 H (0.00-1.00) K/uL Eos # (Auto) 0.01 (0.00-0.50) K/uL Baso # (Auto) 0.02 (0.00-0.20) K/uL PT 9.6 (9.5-12.0) SEC INR 1.0 APTT 25.3 (24.5-32.8) SEC D-Dimer, Quantitative 246 (0-400) ng/mL Sodium (136-145) mmol/L Potassium (3.5-5.1) mmol/L Chloride (98-107) mmol/L Carbon Dioxide (21.0-32.0) mmol/L BUN (7-18) mg/dL Creatinine (0.51-1.17) mg/dL Est Cr Clr Drug Dosing Estimated GFR (MDRD) mL/min Glucose (74-106) mg/dL Hemoglobin A1c (4.3-5.7) % Lactic Acid (0.4-2.0) mmol/L Uric Acid (2.6-7.2) mg/dL Calcium (8.5-10.1) mg/dL Magnesium (1.8-2.4) mg/dL Total Bilirubin (0.2-1.0) mg/dL AST (15-37) U/L ALT (12-78) U/L Alkaline Phosphatase (46-116) IU/L Creatine Kinase (26-308) U/L Creatine Kinase Index (0.0-2.5) % CK-MB (CK-2) (0.00-3.60) ng/mL Troponin I (0.000-0.056) ng/mL NT-Pro-B Natriuret Pep (0-125) pg/mL Total Protein (6.4-8.2) g/dL Albumin (3.4-5.0) g/dL Triglycerides (30-150) mg/dL Cholesterol (100-200) mg/dL LDL Cholesterol, Calc (0-100) mg/dL HDL Cholesterol (40-60) mg/dL TSH, Ultra Sensitive (0.358-3.740) mIU/mL Specimen Type Urine Color Urine Appearance Urine pH (5.0-9.0) Ur Specific Laura (1.005-1.030) Urine Protein (NEGATIVE) mg/dL Urine Glucose (UA) (NEGATIVE) mg/dL Urine Ketones (NEGATIVE) mg/dL Urine Occult Blood (NEGATIVE) Urine Nitrite (NEGATIVE) Urine Bilirubin (NEGATIVE) Urine Urobilinogen (0.2-1.0) E.U./dL Ur Leukocyte Esterase (NEGATIVE) U Hyaline Cast (Auto) Urine RBC /HPF Urine WBC /HPF Ur Epithelial Cells /LPF Urine Bacteria (NONE TO FEW) /HPF 08/31/20 08/31/20 08/31/20 Range/Units 11:55 11:55 15:10 WBC (4.0-10.2) K/uL RBC (3.77-5.09) M/uL Hgb (11.7-15.5) g/dL Hct (34.0-46.0) % MCV (84.0-98.0) fL MCH (28.2-33.3) pg MCHC (31.7-36.0) g/dL RDW (11.2-14.1) % Plt Count (150-350) K/uL Neut % (Auto) (45.0-80.0) % Lymph % (Auto) (10.0-50.0) % Patrick % (Auto) (2.0-14.0) % Eos % (Auto) (0.0-5.0) % Baso % (Auto) (0.0-2.0) % Neut # (Auto) (1.40-7.00) K/uL Lymph # (Auto) (0.50-3.50) K/uL Patrick # (Auto) (0.00-1.00) K/uL Eos # (Auto) (0.00-0.50) K/uL Baso # (Auto) (0.00-0.20) K/uL PT (9.5-12.0) SEC INR APTT (24.5-32.8) SEC D-Dimer, Quantitative (0-400) ng/mL Sodium 138 (136-145) mmol/L Potassium 3.9 (3.5-5.1) mmol/L Chloride 102 (98-107) mmol/L Carbon Dioxide 24.1 (21.0-32.0) mmol/L BUN 16 (7-18) mg/dL Creatinine 1.03 (0.51-1.17) mg/dL Est Cr Clr Drug Dosing TNP Estimated GFR (MDRD) 54 mL/min Glucose 124 H (74-106) mg/dL Hemoglobin A1c (4.3-5.7) % Lactic Acid 2.3 H (0.4-2.0) mmol/L Uric Acid 4.6 (2.6-7.2) mg/dL Calcium 9.7 (8.5-10.1) mg/dL Magnesium 2.1 (1.8-2.4) mg/dL Total Bilirubin 0.8 (0.2-1.0) mg/dL AST 15 (15-37) U/L ALT 24 (12-78) U/L Alkaline Phosphatase 76 (46-116) IU/L Creatine Kinase 51 48 (26-308) U/L Creatine Kinase Index 2.0 2.7 H (0.0-2.5) % CK-MB (CK-2) 1.00 1.30 (0.00-3.60) ng/mL Troponin I 0.012 0.014 (0.000-0.056) ng/mL NT-Pro-B Natriuret Pep 4484 H (0-125) pg/mL Total Protein 7.7 (6.4-8.2) g/dL Albumin 3.8 (3.4-5.0) g/dL Triglycerides (30-150) mg/dL Cholesterol (100-200) mg/dL LDL Cholesterol, Calc (0-100) mg/dL HDL Cholesterol (40-60) mg/dL TSH, Ultra Sensitive 1.908 (0.358-3.740) mIU/mL Specimen Type Urine Color Urine Appearance Urine pH (5.0-9.0) Ur Specific Laura (1.005-1.030) Urine Protein (NEGATIVE) mg/dL Urine Glucose (UA) (NEGATIVE) mg/dL Urine Ketones (NEGATIVE) mg/dL Urine Occult Blood (NEGATIVE) Urine Nitrite (NEGATIVE) Urine Bilirubin (NEGATIVE) Urine Urobilinogen (0.2-1.0) E.U./dL Ur Leukocyte Esterase (NEGATIVE) U Hyaline Cast (Auto) Urine RBC /HPF Urine WBC /HPF Ur Epithelial Cells /LPF Urine Bacteria (NONE TO FEW) /HPF 08/31/20 08/31/20 08/31/20 Range/Units 15:10 16:00 21:10 WBC (4.0-10.2) K/uL RBC (3.77-5.09) M/uL Hgb (11.7-15.5) g/dL Hct (34.0-46.0) % MCV (84.0-98.0) fL MCH (28.2-33.3) pg MCHC (31.7-36.0) g/dL RDW (11.2-14.1) % Plt Count (150-350) K/uL Neut % (Auto) (45.0-80.0) % Lymph % (Auto) (10.0-50.0) % Patrick % (Auto) (2.0-14.0) % Eos % (Auto) (0.0-5.0) % Baso % (Auto) (0.0-2.0) % Neut # (Auto) (1.40-7.00) K/uL Lymph # (Auto) (0.50-3.50) K/uL Patrick # (Auto) (0.00-1.00) K/uL Eos # (Auto) (0.00-0.50) K/uL Baso # (Auto) (0.00-0.20) K/uL PT (9.5-12.0) SEC INR APTT (24.5-32.8) SEC D-Dimer, Quantitative (0-400) ng/mL Sodium (136-145) mmol/L Potassium (3.5-5.1) mmol/L Chloride (98-107) mmol/L Carbon Dioxide (21.0-32.0) mmol/L BUN (7-18) mg/dL Creatinine (0.51-1.17) mg/dL Est Cr Clr Drug Dosing Estimated GFR (MDRD) mL/min Glucose (74-106) mg/dL Hemoglobin A1c (4.3-5.7) % Lactic Acid 1.9 (0.4-2.0) mmol/L Uric Acid (2.6-7.2) mg/dL Calcium (8.5-10.1) mg/dL Magnesium (1.8-2.4) mg/dL Total Bilirubin (0.2-1.0) mg/dL AST (15-37) U/L ALT (12-78) U/L Alkaline Phosphatase (46-116) IU/L Creatine Kinase 55 (26-308) U/L Creatine Kinase Index 1.6 (0.0-2.5) % CK-MB (CK-2) 0.90 (0.00-3.60) ng/mL Troponin I 0.021 (0.000-0.056) ng/mL NT-Pro-B Natriuret Pep (0-125) pg/mL Total Protein (6.4-8.2) g/dL Albumin (3.4-5.0) g/dL Triglycerides (30-150) mg/dL Cholesterol (100-200) mg/dL LDL Cholesterol, Calc (0-100) mg/dL HDL Cholesterol (40-60) mg/dL TSH, Ultra Sensitive (0.358-3.740) mIU/mL Specimen Type Urincc Urine Color Yellow Urine Appearance Clear Urine pH 6.0 (5.0-9.0) Ur Specific Laura 1.015 (1.005-1.030) Urine Protein Negative (NEGATIVE) mg/dL Urine Glucose (UA) Negative (NEGATIVE) mg/dL Urine Ketones Negative (NEGATIVE) mg/dL Urine Occult Blood Negative (NEGATIVE) Urine Nitrite Negative (NEGATIVE) Urine Bilirubin Negative (NEGATIVE) Urine Urobilinogen 0.2 (0.2-1.0) E.U./dL Ur Leukocyte Esterase Negative (NEGATIVE) U Hyaline Cast (Auto) Few Urine RBC 0-5 /HPF Urine WBC 0-5 /HPF Ur Epithelial Cells Few /LPF Urine Bacteria Few (NONE TO FEW) /HPF 09/01/20 09/01/20 09/01/20 Range/Units 07:00 07:00 07:00 WBC 9.9 (4.0-10.2) K/uL RBC 4.80 (3.77-5.09) M/uL Hgb 14.4 (11.7-15.5) g/dL Hct 43.8 (34.0-46.0) % MCV 91.3 (84.0-98.0) fL MCH 30.0 (28.2-33.3) pg MCHC 32.9 (31.7-36.0) g/dL RDW 14.8 H (11.2-14.1) % Plt Count 274 (150-350) K/uL Neut % (Auto) 72.7 (45.0-80.0) % Lymph % (Auto) 15.6 (10.0-50.0) % Patrick % (Auto) 11.2 (2.0-14.0) % Eos % (Auto) 0.3 (0.0-5.0) % Baso % (Auto) 0.2 (0.0-2.0) % Neut # (Auto) 7.22 H (1.40-7.00) K/uL Lymph # (Auto) 1.55 (0.50-3.50) K/uL Patrick # (Auto) 1.11 H (0.00-1.00) K/uL Eos # (Auto) 0.03 (0.00-0.50) K/uL Baso # (Auto) 0.02 (0.00-0.20) K/uL PT (9.5-12.0) SEC INR APTT (24.5-32.8) SEC D-Dimer, Quantitative (0-400) ng/mL Sodium 139 (136-145) mmol/L Potassium 3.4 L (3.5-5.1) mmol/L Chloride 104 (98-107) mmol/L Carbon Dioxide 26.3 (21.0-32.0) mmol/L BUN 17 (7-18) mg/dL Creatinine 0.88 (0.51-1.17) mg/dL Est Cr Clr Drug Dosing 68.92 Estimated GFR (MDRD) > 60 mL/min Glucose 102 (74-106) mg/dL Hemoglobin A1c 5.5 (4.3-5.7) % Lactic Acid (0.4-2.0) mmol/L Uric Acid (2.6-7.2) mg/dL Calcium 8.6 (8.5-10.1) mg/dL Magnesium (1.8-2.4) mg/dL Total Bilirubin 0.8 (0.2-1.0) mg/dL AST 13 L (15-37) U/L ALT 22 (12-78) U/L Alkaline Phosphatase 62 (46-116) IU/L Creatine Kinase 42 (26-308) U/L Creatine Kinase Index 2.4 (0.0-2.5) % CK-MB (CK-2) 1.00 (0.00-3.60) ng/mL Troponin I 0.024 (0.000-0.056) ng/mL NT-Pro-B Natriuret Pep 962 H (0-125) pg/mL Total Protein 6.7 (6.4-8.2) g/dL Albumin 3.2 L (3.4-5.0) g/dL Triglycerides 105 (30-150) mg/dL Cholesterol 154 (100-200) mg/dL LDL Cholesterol, Calc 67 (0-100) mg/dL HDL Cholesterol 66 H (40-60) mg/dL TSH, Ultra Sensitive (0.358-3.740) mIU/mL Specimen Type Urine Color Urine Appearance Urine pH (5.0-9.0) Ur Specific Laura (1.005-1.030) Urine Protein (NEGATIVE) mg/dL Urine Glucose (UA) (NEGATIVE) mg/dL Urine Ketones (NEGATIVE) mg/dL Urine Occult Blood (NEGATIVE) Urine Nitrite (NEGATIVE) Urine Bilirubin (NEGATIVE) Urine Urobilinogen (0.2-1.0) E.U./dL Ur Leukocyte Esterase (NEGATIVE) U Hyaline Cast (Auto) Urine RBC /HPF Urine WBC /HPF Ur Epithelial Cells /LPF Urine Bacteria (NONE TO FEW) /HPF 09/01/20 Range/Units 07:00 WBC (4.0-10.2) K/uL RBC (3.77-5.09) M/uL Hgb (11.7-15.5) g/dL Hct (34.0-46.0) % MCV (84.0-98.0) fL MCH (28.2-33.3) pg MCHC (31.7-36.0) g/dL RDW (11.2-14.1) % Plt Count (150-350) K/uL Neut % (Auto) (45.0-80.0) % Lymph % (Auto) (10.0-50.0) % Patrick % (Auto) (2.0-14.0) % Eos % (Auto) (0.0-5.0) % Baso % (Auto) (0.0-2.0) % Neut # (Auto) (1.40-7.00) K/uL Lymph # (Auto) (0.50-3.50) K/uL Patrick # (Auto) (0.00-1.00) K/uL Eos # (Auto) (0.00-0.50) K/uL Baso # (Auto) (0.00-0.20) K/uL PT (9.5-12.0) SEC INR APTT (24.5-32.8) SEC D-Dimer, Quantitative (0-400) ng/mL Sodium (136-145) mmol/L Potassium (3.5-5.1) mmol/L Chloride (98-107) mmol/L Carbon Dioxide (21.0-32.0) mmol/L BUN (7-18) mg/dL Creatinine (0.51-1.17) mg/dL Est Cr Clr Drug Dosing Estimated GFR (MDRD) mL/min Glucose (74-106) mg/dL Hemoglobin A1c (4.3-5.7) % Lactic Acid 1.2 (0.4-2.0) mmol/L Uric Acid (2.6-7.2) mg/dL Calcium (8.5-10.1) mg/dL Magnesium (1.8-2.4) mg/dL Total Bilirubin (0.2-1.0) mg/dL AST (15-37) U/L ALT (12-78) U/L Alkaline Phosphatase (46-116) IU/L Creatine Kinase (26-308) U/L Creatine Kinase Index (0.0-2.5) % CK-MB (CK-2) (0.00-3.60) ng/mL Troponin I (0.000-0.056) ng/mL NT-Pro-B Natriuret Pep (0-125) pg/mL Total Protein (6.4-8.2) g/dL Albumin (3.4-5.0) g/dL Triglycerides (30-150) mg/dL Cholesterol (100-200) mg/dL LDL Cholesterol, Calc (0-100) mg/dL HDL Cholesterol (40-60) mg/dL TSH, Ultra Sensitive (0.358-3.740) mIU/mL Specimen Type Urine Color Urine Appearance Urine pH (5.0-9.0) Ur Specific Laura (1.005-1.030) Urine Protein (NEGATIVE) mg/dL Urine Glucose (UA) (NEGATIVE) mg/dL Urine Ketones (NEGATIVE) mg/dL Urine Occult Blood (NEGATIVE) Urine Nitrite (NEGATIVE) Urine Bilirubin (NEGATIVE) Urine Urobilinogen (0.2-1.0) E.U./dL Ur Leukocyte Esterase (NEGATIVE) U Hyaline Cast (Auto) Urine RBC /HPF Urine WBC /HPF Ur Epithelial Cells /LPF Urine Bacteria (NONE TO FEW) /HPF NICHOLAS Results - Last 24 hrs: Microbiology 08/31/20 16:00 Urine Culture - Final Urine, Clean Catch MIXED LISA SUGGESTIVE OF CONTAMINATION. Med Orders - Current: Current Medications Acetaminophen (Tylenol) 650 mg PO Q4H PRN PRN Reason: Pain Aspirin (Aspirin) 81 mg PO DAILY [facility] Last Admin: 09/01/20 07:32 Dose: 81 mg Documented by: Coenzyme Q10 (Coenzyme Q10) 200 mg PO DAILY [facility] Last Admin: 09/01/20 07:31 Dose: 200 mg Documented by: Flaxseed (Flaxseed Oil) 1,000 mg PO DAILY [facility] Last Admin: 09/01/20 07:33 Dose: 1,000 mg Documented by: Fluticasone Propionate (Flonase) 0 gm NASBOTH DAILY [facility] Last Admin: 09/01/20 07:57 Dose: 2 spray Documented by: Furosemide (Lasix) 40 mg IVPUSH Q12H [facility] Last Admin: 09/01/20 03:28 Dose: 40 mg Documented by: Lactated Ringer's (Ringers, Lactated) 1,000 mls @ 100 mls/hr IV ASDIRECTED [facility] Last Admin: 09/01/20 01:21 Dose: 100 mls/hr Documented by: Imipramine HCl (Imipramine Hcl) 25 mg PO BEDTIME [facility] Last Admin: 08/31/20 19:42 Dose: 25 mg Documented by: Magnesium Oxide (Magnesium Oxide) 400 mg PO BEDTIME [facility] Last Admin: 08/31/20 19:36 Dose: 400 mg Documented by: Metoprolol Succinate (Toprol Xl) 50 mg PO DAILY [facility] Last Admin: 09/01/20 07:33 Dose: 50 mg Documented by: Multivitamins/Minerals/Vitamin C (Tab-A-Lakisha) 1 tab PO DAILY [facility] Last Admin: 09/01/20 07:34 Dose: 1 tab Documented by: Fluticasone/Salmeterol Advair 250/50 1 puff INH BID [facility] Last Admin: 09/01/20 07:56 Dose: 1 puff Documented by: Sacubitril/Valsartan [Entresto 49 Mg-51 Mg Tablet] 1 tab PO BID [facility] Last Admin: 09/01/20 07:59 Dose: 1 tab Documented by: Zafirlukast [ (Accolate] 20mg) 1 tab PO BEDTIME [facility] Last Admin: 08/31/20 19:37 Dose: 1 tab Documented by: Potassium Chloride (Klor-Con M20) 20 meq PO BID [facility] Last Admin: 09/01/20 07:34 Dose: 20 meq Documented by: Rosuvastatin Calcium (Crestor) 2.5 mg PO Q48H [facility] Last Admin: 09/01/20 07:34 Dose: 2.5 mg Documented by: Sodium Chloride (Saline Flush) 10 ml FLUSH ASDIRECTED PRN PRN Reason: Keep Vein Open Last Admin: 08/31/20 15:13 Dose: 10 ml Documented by: Sodium Chloride (Saline Flush) 10 ml FLUSH Q12HR PRN PRN Reason: Keep Vein Open Ticagrelor (Brilinta) 90 mg PO BID [facility] Last Admin: 09/01/20 07:34 Dose: 90 mg Documented by: Discontinued Medications Famotidine (Pepcid) 40 mg IVPUSH ONETIME ONE Stop: 08/31/20 11:47 Last Admin: 08/31/20 11:53 Dose: 40 mg Documented by: Lactated Ringer's (Ringers, Lactated) 1,000 mls @ 999 mls/hr IV .BOLUS ONE Stop: 08/31/20 13:19 Last Admin: 08/31/20 12:29 Dose: 999 mls/hr Documented by: - Exam Quality Assessment: Reports: DVT Prophylaxis. Denies: Supplemental Oxygen, Central Line/PICC, Urine Catheter, Skin Breakdown, Restraints General: Reports: Alert, Cooperative, No Acute Distress HEENT: Reports: Pupils Equal, Pupils Reactive, EOMI, Mucous Membr. Moist/[place], Other (Patient is wearing glasses. No vertigo or nystagmus. Mild return to epistaxis despite left anterior posterior Rhino Rocket with evidence of mild epistaxis/in the anterior left lateral naris with additional mild clots and bleeding in the hypopharynx). Denies: Scleral Icterus Neck: Reports: Supple, Trachea Midline, No JVD, No Thyromegaly. Denies: +2 Carotid Pulse wo Bruit, Lymphadenopathy Lungs: Reports: Clear to Auscultation, Normal Respiratory Effort. Denies: Rhonchi, Rub, Wheezing Cardiovascular: Reports: Regular Rate, Regular Rhythm, No Murmurs. Denies: Gallops, Rubs GI/Abdominal Exam: Normal Bowel Sounds, Soft, Non-Tender, No Organomegaly, No Distention, No Abnormal Bruit, No Mass, Other (Obese). No: Guarding (Female) Exam: Deferred Rectal (Female) Exam: Deferred Back Exam: Reports: Normal Inspection, Full Range of Motion. Denies: CVA Tenderness (L), CVA Tenderness (R), Muscle Spasm Extremities: Normal Inspection, Normal Range of Motion, Non-Tender, No Pedal Edema, Normal Capillary Refill. No: Pedal Edema Skin: Reports: Warm, Dry, Intact, Ecchymosis (Stable mild in the upper arms bilaterally) Neurological: Reports: No New Focal Deficit, Other (No clinical orthostasis) Psy/Mental Status: Reports: Alert, Normal Affect, Normal Mood. Denies: Agitated, Hallucinations, Withdrawal Symptoms #1 Interpretation EKG Date: 09/01/20 Time: 07:39 Rhythm: NSR Rate (Beats/Min): 73 [place]: LAD-Left Salineno Deviation (Extended left) P-Wave: Enlarged (Mild to moderate diffuse biphasic P waves with extreme poor R wave progression in the anterior leads) QRS: Wide (0.10 seconds representing repolarization changes with resolution of previous incomplete left bundle branch block) ST-T: Other (New T wave inversions in leads II, III, and aVF with T wave inversions in leads V1 through V6, which has progressed from previous T wave inversion in leads V3 through V6.) QT: Normal MN/PQ Interval: 0.21 seconds representing stable first-degree AV block Comparison: Change From Previous EKG (As above since 08/31/2020) EKG Interpretation Comments: 1. Progressive diffuse cardiac ischemia 2. Repolarization changes with recent new Incomplete right bundle branch block 3. Left atrial enlargement 4. First-degree AV block Discharge Operative/Procedures - Procedures Performed Operations: See below Operations/Procedure Comment: Bilateral nasal packing with left-sided silver nitrate cauterization as above.
--- NOTE | 2020-09-01 10:13 | PCM.SN.2 ---
- Free Text/Narrative Note: Correction: Disposition of patient was transferred to acute care hospital. In addition, see emergency room note and admission H&P for previous medical history, etc.
== END 2020-09-01 10:45 ==
LOC: LL.ED 11:43 → LL.MS 13:27
PROVIDERS: ADMIT Family Medicine; ATTEND Family Medicine
DX: I95.9 Hypotension, unspecified (principal); R42 Dizziness and giddiness; I25.10 Atherosclerotic heart disease of native coronary artery without angina pectoris; I11.0 Hypertensive heart disease with heart failure; E78.00 Pure hypercholesterolemia, unspecified; I25.2 Old myocardial infarction; I50.9 Heart failure, unspecified; J44.9 Chronic obstructive pulmonary disease, unspecified; D72.825 Bandemia; I44.7 Left bundle-branch block, unspecified; E87.6 Hypokalemia; E88.09 Other disorders of plasma-protein metabolism, not elsewhere classified; I49.3 Ventricular premature depolarization; R04.0 Epistaxis; Z88.2 Allergy status to sulfonamides; Z79.899 Other long term (current) drug therapy; Z79.82 Long term (current) use of aspirin
CPT/HCPCS: 36415; 71045; 80053; 80061; 81001; 82550; 82553; 83036; 83605; 83735; 83880; 84443; 84484; 84550; 85025; 85379; 85610; 85730; 87086; 93005; 94640; 96361; 96374; 96375; 96376; 99217; 99220; 99285-25; A9270-GY; G0378; J1940; J3490; J7120

== ENCOUNTER 2023-04-17 12:11 | Emergency (ER) | payer MEDICARE ==
[2023-04-17 13:00] VITALS: BP 115/89; PULSE 59
== END 2023-04-17 14:30 | disposition home or self-care (01) ==
LOC: SUPCPDRO 12:11 → LL.ED 12:11
DX: R07.9 Chest pain, unspecified (principal); I11.0 Hypertensive heart disease with heart failure; I50.9 Heart failure, unspecified; I25.10 Atherosclerotic heart disease of native coronary artery without angina pectoris; E78.00 Pure hypercholesterolemia, unspecified; I25.2 Old myocardial infarction; J44.9 Chronic obstructive pulmonary disease, unspecified; M19.90 Unspecified osteoarthritis, unspecified site; E66.9 Obesity, unspecified; Z95.5 Presence of coronary angioplasty implant and graft; Z79.82 Long term (current) use of aspirin; Z79.899 Other long term (current) drug therapy; Z79.02 Long term (current) use of antithrombotics/antiplatelets; Z88.8 Allergy status to other drugs, medicaments and biological substances; Z88.2 Allergy status to sulfonamides; Z88.7 Allergy status to serum and vaccine
CPT/HCPCS: 36415; 71045; 84484; 93005; 99285

== ENCOUNTER 2024-09-01 13:15 | Emergency (ER) | payer MEDICARE ==
[2024-09-01 13:33] LABS: BASOPHILS ABSOLUTE AUTO 0.03 K/uL (0.00-0.20); BASOPHILS PERCENT AUTO 0.4 % (0.0-2.0); EOSINOPHILS ABSOLUTE AUTO 0.14 K/uL (0.00-0.50); EOSINOPHILS PERCENT AUTO 1.9 % (0.0-5.0); HEMATOCRIT 42.8 % (34.0-46.0); HEMOGLOBIN 14.2 g/dL (11.7-15.5); IMMATURE GRAN ABSOLUTE AUTO 0.02 10^3/uL (0.00-0.04); IMMATURE GRAN PERCENT AUTO 0.3 % (0.0-0.4); LYMPHOCYTES PERCENT AUTO 20.8 % (10.0-50.0); MEAN CORPUSCULAR HEMOGLOBIN 30.7 pg (28.2-33.3); MEAN CORPUSCULAR HGB CONC 33.2 g/dL (31.7-36.0); MEAN CORPUSCULAR VOLUME 92.4 fL (84.0-98.0); MONOCYTES PERCENT AUTO 6.9 % (2.0-14.0); NEUTROPHILS ABSOLUTE AUTO 5.02 K/uL (1.40-7.00); NEUTROPHILS PERCENT AUTO 69.7 % (45.0-80.0); PLATELET COUNT,PLT 249 K/uL (150-350); RED BLOOD CELL COUNT 4.63 M/uL (3.77-5.09); RED CELL DISTRIBUTION WIDTH 14.8 % (11.2-14.1); WHITE BLOOD CELL COUNT,WBC 7.2 K/uL (4.0-10.2)
[2024-09-01 13:49] LABS: ALBUMIN 3.9 g/dL (3.4-5.0); BILIRUBIN TOTAL 0.6 mg/dL (0.2-1.0); CALCIUM 9.2 mg/dL (8.5-10.1); CARBON DIOXIDE,CO2 25.8 mmol/L (21.0-32.0); CREATININE 0.89 mg/dL (0.51-1.17); EST CRCL DRUG DOSING (CG) 62.35 mL/min; POTASSIUM,K 4.2 mmol/L (3.5-5.1); PROTEIN TOTAL,TP 6.9 g/dL (6.4-8.2)
[2024-09-01 13:50] LABS: ANION GAP 14.4 meq/L (7-15)
[2024-09-01] MEDS: Lidocaine 1% 5 ML VIAL INJECT ONE (14:44)
[2024-09-01] MEDS: Tranexamic Acid 1,000 MG/10 ML Vial TOP ONE (16:26)
== END 2024-09-01 18:40 | disposition home or self-care (01) ==
LOC: SUPCPDRO 13:15 → LL.ED 13:15
DX: S02.2XXB Fracture of nasal bones, initial encounter for open fracture (principal); I25.10 Atherosclerotic heart disease of native coronary artery without angina pectoris; I11.0 Hypertensive heart disease with heart failure; I50.9 Heart failure, unspecified; E78.00 Pure hypercholesterolemia, unspecified; Z95.5 Presence of coronary angioplasty implant and graft; Z88.7 Allergy status to serum and vaccine; Z88.2 Allergy status to sulfonamides; Z88.8 Allergy status to other drugs, medicaments and biological substances; Z79.82 Long term (current) use of aspirin; Z79.899 Other long term (current) drug therapy; W18.39XA Other fall on same level, initial encounter; Y93.89 Activity, other specified
CPT/HCPCS: 12011; 30901; 36415; 70450; 70486; 72125; 80053; 85025; 99283; 99284; J3490